=== PATIENT | male | born 1945 | race Caucasian/White ===

== ENCOUNTER → 2019-02-21 08:26 | Outpatient (BNVA) | payer OTHER, MEDICARE, SELFPAY | PROVIDERS: Family Provider Registered Nurse; PCP Registered Nurse; Visit Provider Orthopaedic Surgery | DX: M19.011 Primary osteoarthritis, right shoulder (principal) | CPT/HCPCS: 73030 ==

== ENCOUNTER → 2019-07-15 11:31 | Outpatient (BNVA) | payer OTHER, MEDICARE, SELFPAY | PROVIDERS: Family Provider Registered Nurse; PCP Registered Nurse; Visit Provider Registered Nurse | DX: R30.0 Dysuria (principal); R73.9 Hyperglycemia, unspecified; I10 Essential (primary) hypertension; E78.5 Hyperlipidemia, unspecified; R53.83 Other fatigue | CPT/HCPCS: 80053; 80061; 81000; 83036; 85025 ==

== ENCOUNTER → 2019-08-19 08:39 | Outpatient (BNVA) | payer MEDICARE, OTHER, SELFPAY | PROVIDERS: Family Provider Registered Nurse; PCP Registered Nurse; Visit Provider Registered Nurse | DX: D72.9 Disorder of white blood cells, unspecified (principal); R94.5 Abnormal results of liver function studies; Z01.89 Encounter for other specified special examinations; R89.9 Unspecified abnormal finding in specimens from other organs, systems and tissues | CPT/HCPCS: 80053; 85025 ==

== ENCOUNTER 2019-12-15 10:12 | Outpatient (CLI) | payer OTHER, MEDICARE, SELFPAY ==
--- NOTE | 2019-12-15 10:22 | USCV_ITS ---
Markos Najera Age: 74 Gender: M : 1945 Exam Date: 12/15/2019 10:22 Ordering Phys: Marbella Diallo MD ([email or web address]) Technologist: Amalia Philip Exam Location: [facility] Indication: BP: 130 / 70 HR: 60 Rhythm: Sinus Technical Quality: Adequate MEASUREMENTS (Male / Female) Normal Values 2D ECHO LV Diastolic Diameter PLAX 3.9 cm 4.2 - 5.9 / 3.9 - 5.3 cm LV Systolic Diameter PLAX 2.5 cm LV Chamber Size 3.6 cm IVS Diastolic Thickness 1.6 cm 0.6 - 1.0 / 0.6 - 0.9 cm IVS Systolic Thickness 1.9 cm LVPW Diastolic Thickness 1.6 cm 0.6 - 1.0 / 0.6 - 0.9 cm LVPW Systolic Thickness 1.8 cm RV Chamber Size 2.8 cm LVOT Diameter 2.0 cm LV Ejection Fraction 2D Teich 66.9 % LV Ejection Fraction MOD 2C 72.9 % LV Ejection Fraction 2C AL 77.4 % LA Diameter 2.6 cm LA Width 2.5 cm LA Height 3.3 cm RA Width 3.0 cm RA Height 4.5 cm Aorta at Sinotubular Diameter 3.4 cm M-MODE LV Diastolic Diameter MM 5.7 cm 4.2 - 5.9 / 3.9 - 5.3 cm LV Systolic Diameter MM 3.5 cm LV Ejection Fraction MM Teich 68.4 % IVS Diastolic Thickness MM 0.9 cm 0.6 - 1.0 / 0.6 - 0.9 cm IVS Systolic Thickness MM 1.5 cm LVPW Diastolic Thickness MM 1.1 cm 0.6 - 1.0 / 0.6 - 0.9 cm LVPW Systolic Thickness MM 1.5 cm RV Diastolic Diameter MM 1.0 cm Aortic Annulus Diameter 3.0 cm LA Ao Ratio MM 1.2 MV E Point Septal Separation 0.6 cm DOPPLER AV Peak Velocity 351.0 cm/s LVOT Peak Velocity 113.0 cm/s AV Area Cont Eq vti 1.0 cm squared AV Area Cont Eq pk 1.1 cm squared MV Area PHT 4.2 cm squared Mitral E to A Ratio 0.9 MV E' Velocity 46.5 cm/s Mitral E to MV E' Ratio 16.0 Mitral E to LV E' Lateral Ratio 16.9 Mitral E to LV E' Septal Ratio 15.1 TR Peak Velocity 142.9 cm/s TR Peak Gradient 8.2 mmHg TR Mean Velocity 100.6 cm/s TR Mean Gradient 4.7 mmHg TR Velocity Time Integral 40.5 cm TV Peak E Velocity 43.0 cm/s Right Atrial Pressure 3.0 mmHg Pulmonary Artery Systolic Pressu 11.2 mmHg PV Peak Velocity 89.0 cm/s RV Acceleration Time 0.1 s RV Ejection Time 0.4 s RV AcT/ET 0.3 FINDINGS Left Ventricle Normal left ventricular cavity size. Normal left ventricular systolic function. No regional wall motion abnormalities. Left ventricular ejection fraction is estimated at 68 %. Grade I/IV diastolic dysfunction (abnormal relaxation filling pattern), normal to mildly elevated filling pressures. Right Ventricle The right ventricle is normal in size and function. Right Atrium The right atrium is normal in size. Left Atrium The left atrium is normal in size. Mitral Valve Structurally normal mitral valve without significant stenosis or prolapse. There is no mitral regurgitation. Aortic Valve Severe aortic valve calcification. Moderate to severe aortic valve stenosis, mean gradient 24.4 mmHg, ELAN 1 cm squared. Mild-to- moderate aortic valve regurgitation. Velocity across the aortic valve is 3.5 m/s Tricuspid Valve Structurally normal tricuspid valve without significant stenosis or regurgitation. Pulmonary artery systolic pressure is normal. Pulmonic Valve Structurally normal pulmonic valve without significant stenosis. There is no pulmonic regurgitation. Pericardium Normal pericardium without effusion. Aorta Normal ascending aorta dimension. CONCLUSIONS 1-Normal left ventricular cavity size. Normal left ventricular systolic function. No regional wall motion abnormalities. Left ventricular ejection fraction is estimated at 68 %. Grade I/IV diastolic dysfunction (abnormal relaxation filling pattern), normal to mildly elevated filling pressures. 2-Severe aortic valve calcification. Moderate to severe aortic valve stenosis, mean gradient 24.4 mmHg, ELAN 1 cm squared. Mild-to- moderate aortic valve regurgitation. Velocity across the aortic valve is 3.5 m/s. 3-There is no pericardial effusion. 4-Right atrial pressure is around 5 mm of mercury. 5-When compared to the prior echocardiogram dated 14 December 2018 there is worsening of aortic stenosis from moderate stenosis with ELAN of 1.5cm2 to moderate to severely stenotic with aortic valve area of 1.0 cm squarednow . Marbella Diallo MD (Electronically Signed) Final Date: 18 December 2019 18:01 S
== END 2019-12-15 10:13 | disposition home or self-care (01) ==
LOC: RAD 10:15
PROVIDERS: PCP Registered Nurse; Visit Provider Internal Medicine Cardiovascular Disease
DX: R06.02 Shortness of breath (principal); I35.0 Nonrheumatic aortic (valve) stenosis
CPT/HCPCS: 93306

== ENCOUNTER 2020-02-04 15:46 | Outpatient (CLI) | payer OTHER, MEDICARE, SELFPAY ==
--- NOTE | 2020-02-04 16:25 | XRR_ITS ---
PROCEDURE INFORMATION: Exam: XR Right Shoulder Exam date and time: 02/04/2020 4:25 PM Age: 75 years old Clinical indication: Condition or disease; Osteoarthritis; Primary; Shoulder; Right; Additional info: M19.011 - primary osteoarthritis, right shoulder TECHNIQUE: Imaging protocol: XR Right shoulder. Views: 2 or more views. COMPARISON: CR XR shoulder RT min 2V* [id number] 02/21/2019 8:31 AM FINDINGS: Bones/joints: Degenerative changes of thoracic spine. Moderate degenerative arthritis of the right shoulder with hypertrophic formation of the proximal humerus. Mild degenerative change at the acromioclavicular joint. Small calcification within tendon near the greater tuberosity of the humerus. Greater tuberosity irregularity and sclerosis Soft tissues: Normal. XR/XR shoulder RT min 2V* [id number] IMPRESSION: Moderately advanced degenerative arthritis right shoulder similar to previous. .
--- NOTE | 2020-02-04 16:25 | XRR_ITS ---
PROCEDURE INFORMATION: Exam: XR Right Hip with Pelvis when Performed Exam date and time: 02/04/2020 4:25 PM Age: 75 years old Clinical indication: Condition or disease; Other: Arthritis; Additional info: M16.11 - unilateral primary osteoarthritis, right hip TECHNIQUE: Imaging protocol: XR Right hip with pelvis when performed. Views: 1 view. COMPARISON: No relevant prior studies available. FINDINGS: Bones/joints: Degenerative arthritis of right hip. Right pelvic vascular calcification. No acute fracture. Most likely degenerative cortical irregularity at the margin of lateral greater trochanter. Soft tissues: Unremarkable. Vasculature: Right pelvic phleboliths. XR/XR hip RT 2-3V wo/w pel* [id number] IMPRESSION: Mild degenerative arthritis right hip.
== END 2020-02-04 15:47 | disposition home or self-care (01) ==
PROVIDERS: PCP Registered Nurse; Visit Provider Registered Nurse
DX: M19.011 Primary osteoarthritis, right shoulder (principal); M16.11 Unilateral primary osteoarthritis, right hip
CPT/HCPCS: 73030; 73502

== ENCOUNTER 2020-03-08 12:13 | Outpatient (CLI) | payer OTHER, MEDICARE, SELFPAY ==
--- NOTE | 2020-03-08 12:26 | XR_ITS ---
WS: [id number] Exam: XR lumbar spine 2-3V* [id number] Date/Time of Exam: 03/08/2020 12:28 PM Reason For Exam: M54.5 - Low back pain No fracture or dislocation noted. Facet DJD at all levels. Mild levoscoliosis. DJD of the SI joints. There may be mild aneurysmal dilatation of the infrarenal abdominal aorta. XR/XR lumbar spine 2-3V* [id number] IMPRESSION: 1. Mild degenerative change. No fracture or malalignment. 2. There may be mild aneurysmal dilatation of the infrarenal abdominal aorta. F urther workup with ultrasound might be considered if felt to be clinically román anted.
== END 2020-03-08 12:14 | disposition home or self-care (01) ==
LOC: RAD 12:25
PROVIDERS: PCP Registered Nurse; Visit Provider Registered Nurse
DX: M54.5 Low back pain (principal)
CPT/HCPCS: 72100

== ENCOUNTER 2020-03-12 21:20 | Emergency (ER) | payer OTHER, MEDICARE, SELFPAY ==
[2020-03-12 21:25] VITALS: BP 141/53; PULSE 75; RESP 17; TEMP 36.5; O2SAT 95; BMI 30.5
[2020-03-12 21:31] VITALS: BP 143/89; PULSE 75; RESP 17; O2SAT 96
--- NOTE | 2020-03-12 21:31 | XRR_ITS ---
PROCEDURE INFORMATION: Exam: XR Chest, 1 View Exam date and time: 03/12/2020 9:37 PM Age: 75 years old Clinical indication: Chest pain; Additional info: Cp TECHNIQUE: Imaging protocol: XR of the chest Views: 1 view. COMPARISON: CR Chest 1 [place] [id number] 12/15/2017 6:16 PM FINDINGS: Lungs: Small dense nodule in the right lung base, consistent with a granuloma. The left lung is clear. Pulmonary vasculature within normal limits. Pleural space: No visible pneumothorax or pleural effusion. Heart/Mediastinum: Cardiomediastinal silhouette contour within normal limits. Bones/joints: No emergent findings identified. XR/XR chest 1V portable [id number] IMPRESSION: 1. No radiographic findings of acute cardiopulmonary disease.
--- NOTE | 2020-03-12 21:32 | ECG_ITS ---
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 Measurements Intervals [place] Rate: 61 P: 57 SC: 240 QRS: -66 QRSD: 137 T: 69 QT: 429 QTc: 434 Interpretive Statements SINUS RHYTHM WITH FIRST DEGREE AV BLOCK RIGHT BUNDLE BRANCH BLOCK [120+ ms QRS DURATION, UPRIGHT V1, 40+ ms S IN I/aVL/V4/V5/V6] LEFT ANTERIOR FASCICULAR BLOCK [QRS AXIS <= -45, QR IN I, RS IN II] Compared to ECG 12/16/2017 01:35:42 No significant changes Electronically Signed On 03-13-2020 15:29:26 CORRECTION WORKER by Geremias Castelan M.D. [id number]
--- NOTE | 2020-03-12 21:46 | W.ED.CHESTPA ---
HPI - Chest Pain General: Chief Complaint: Chest Pain Stated Complaint: CHEST PAINS Time Seen by Provider: 03/12/20 21:31 Source: patient Mode of arrival: ambulatory Limitations: no limitations History of Present Illness: HPI narrative: Patient comes in today with chest discomfort that has resolved since arriving to the ER. Patient had been eating a hamburger and started having centralized chest pain that radiated to the right and then back up into his chest. Patient does have a history of aortic stenosis, hyperlipidemia, hypertension, and osteoarthritis of the right shoulder. Patient appears well. Patient appears in mild to no pain. MD complaint: chest pain Associated symptoms: Reports abdominal pain Review of Systems General: Reports: 10 or more systems reviewed and unremarkable except in HPI and below GI: Reports: abdominal pain PFSH ED PFSH: Medical History Aortic stenosis, moderate Hyperlipidemia Hypertension Osteoarthritis of right glenohumeral joint Family History Denies family history of Diabetes CAD (coronary artery disease) Clotting disorder Dementia Hyperlipidemia Psychiatric illness Chronic kidney disease (CKD) Suicide Anesthesia complication Bleeding disorder Family history of premature coronary artery disease Lung disease Cancer Hypertension Stroke Social History Smoking and tobacco status: former smoker Alcohol intake: former Physical Exam Const: COMMON NORMALS: no acute distress and patient oriented x3 GENERAL APPEARANCE: cooperative HENMT: COMMON NORMALS: normocephalic and Normal external nose present HEAD & SCALP: normal to inspection and normocephalic NOSE: Normal external nose present MOUTH: Normal oral and palatal mucosa present Eye: GENERAL EYE: appearance normal, both eyes and all related structures Neck/C-Spine: COMMON NORMALS: full ROM Chest: COMMONS NORMALS: normal inspection of the chest Resp: COMMON NORMALS: normal respiratory effort EFFORT & INSPECTION: Yes able to speak in complete sentences Cardio: COMMON NORMALS: regular rate and regular rhythm RATE: regular rate RHYTHM: regular rhythm HEART SOUNDS: Murmur heart sound present continuous GI: COMMON NORMALS: non-tender : COMMON NORMALS: Yes no CVA tenderness BLADDER/KIDNEY EXAM: Yes no CVA tenderness Back/Pelvis: COMMON NORMALS: no CVA tenderness and thoracic and lumbar spine normal to inspection Extremity: COMMON NORMALS: normal to inspection Neuro: COMMON NORMALS: patient oriented x3 and moves all extremities Psych: COMMON NORMALS: mental status grossly normal and cooperative Skin: COMMON NORMALS: no rashes or lesions noted GENERAL SKIN EXAM: no rashes or lesions noted Course ED course: 1035, patient had episode of emesis with recurrent chest discomfort. First troponin was negative. D-dimer was negative. Concern for abdominal bruit and pulsation for dissection of aorta. We will go ahead with CTA of the chest and abdomen. Vital Signs: Vital signs: Vital Signs Temperature 97.7 F 03/12/20 21:25 Pulse Rate 66 03/12/20 23:43 Respiratory Rate 18 03/12/20 23:43 Blood Pressure 128/69 03/12/20 23:43 Pulse Oximetry 95 03/12/20 23:43 MDM - Chest Pain MDM Narrative: Medical decision making narrative: Patient comes in today for concerns of abdominal/chest pain. On exam patient has no tenderness of the abdomen. Lungs are clear to auscultation. Skin is warm and dry. Patient has a very mild pansystolic murmur throughout diastole and systole. Palpation of abdomen note a pulsation. Bruit is also auscultated in the abdomen. Differential diagnosis includes ACS, dissection of aorta, gastritis. Laboratory values were unremarkable. No change in troponin over [address] scan of the chest and abdomen noted a 3 cm abdomen aortic aneurysm. There was no sign of significant illness or injury. Reviewed exam with patient with recommendations for follow-up with Dr. Sanz. Offered to admit patient observation for chest discomfort but he wished to go home. Discussed the importance of follow-up with Dr. Sanz for further evaluation and treatment. Lab Data: Labs: Lab Results 03/12/20 03/12/20 03/12/20 Range/Units 21:41 21:41 21:41 WBC 7.1 (4.0-10.0) 10^3/ uL RBC 5.20 (4.1-5.3) 10^6/u L Hgb 14.8 (11.7-16.6) g/dL Hct 46.3 (42.0-52.0) % MCV 89.0 (80-94) fL MCH 28.5 (28.0-34.0) pg MCHC 32.0 (30.0-36.0) g/dL RDW 12.7 (12.1-15.1) % Plt Count 197 (130-400) 10^3/c mm MPV 10.9 H (7.4-10.4) fL Neut % (Auto) 53.6 % Lymph % (Auto) 32.9 % [place] % (Auto) 9.0 % Eos % (Auto) 3.8 % Baso % (Auto) 0.6 % Neut # (Auto) 3.83 (1.8-7.7) 10^3/u L Lymph # (Auto) 2.4 (0.8-4.8) 10^3/u L [place] # (Auto) 0.6 (0.2-0.9) 10^3/u L Eos # (Auto) 0.3 (0.0-0.8) 10^3/u L Baso # (Auto) 0.0 (0.0-0.1) 10^3/u L Nucleated RBC % (a uto) 0 % Nucleated RBCs # 0.0 /100WBC D-Dimer 0.35 (0-0.59) ug/mIFE U Sodium 140 (136-145) mmol/L Potassium 4.0 (3.5-5.1) mmol/L Chloride 102 (98-107) mmol/L Carbon Dioxide 28 (22-29) mmol/L Anion Gap 14.0 (5-19) BUN 20 (8-23) mg/dL Creatinine 0.9 (0.7-1.2) mg/dL GFR Calculation Not Reportable Glucose 102 (65-115) mg/dL Calculated Osmolal ity 293 (285-295) mOsm/k g Calcium 9.2 (8.5-10.5) mg/dL Total Bilirubin 0.2 (0.15-1.2) mg/dL AST 20 (0-40) U/L ALT 16 (0-41) U/L Alkaline Phosphata se 73 (40-130) IU/L Troponin T Baselin e (0-15) ng/L Troponin T 120 Min cocopah (0-15) ng/L Delta Troponin T (0-10) ABS# NT-Pro-B Natriuret Pep 31 (0-450) pg/mL Total Protein 6.8 (6.6-8.7) g/dL Albumin 4.1 (3.5-5.2) g/dL Globulin 2.7 (1.3-4.6) g/dL Urine Color (Yellow) Urine Appearance (CLEAR) Urine pH (5-7) Ur Specific Gravit y (1.005-1.030) Urine Protein (Negative) Urine Glucose (UA) (Normal) Urine Ketones (Negative) Urine Blood (Negative) Urine Nitrate (Negative) Urine Bilirubin (Negative) Urine Urobilinogen (Negative) mg/dL Ur Leukocyte Isaura ase (Negative) 03/12/20 03/12/20 03/12/20 Range/Units 21:41 23:25 23:52 WBC (4.0-10.0) 10^3/ uL RBC (4.1-5.3) 10^6/u L Hgb (11.7-16.6) g/dL Hct (42.0-52.0) % MCV (80-94) fL MCH (28.0-34.0) pg MCHC (30.0-36.0) g/dL RDW (12.1-15.1) % Plt Count (130-400) 10^3/c mm MPV (7.4-10.4) fL Neut % (Auto) % Lymph % (Auto) % [place] % (Auto) % Eos % (Auto) % Baso % (Auto) % Neut # (Auto) (1.8-7.7) 10^3/u L Lymph # (Auto) (0.8-4.8) 10^3/u L [place] # (Auto) (0.2-0.9) 10^3/u L Eos # (Auto) (0.0-0.8) 10^3/u L Baso # (Auto) (0.0-0.1) 10^3/u L Nucleated RBC % (a uto) % Nucleated RBCs # /100WBC D-Dimer (0-0.59) ug/mIFE U Sodium (136-145) mmol/L Potassium (3.5-5.1) mmol/L Chloride (98-107) mmol/L Carbon Dioxide (22-29) mmol/L Anion Gap (5-19) BUN (8-23) mg/dL Creatinine (0.7-1.2) mg/dL GFR Calculation Glucose (65-115) mg/dL Calculated Osmolal ity (285-295) mOsm/k g Calcium (8.5-10.5) mg/dL Total Bilirubin (0.15-1.2) mg/dL AST (0-40) U/L ALT (0-41) U/L Alkaline Phosphata se (40-130) IU/L Troponin T Baselin e 16 H (0-15) ng/L Troponin T 120 Min [place] 16.30 H (0-15) ng/L Delta Troponin T 0.30 (0-10) ABS# NT-Pro-B Natriuret Pep (0-450) pg/mL Total Protein (6.6-8.7) g/dL Albumin (3.5-5.2) g/dL Globulin (1.3-4.6) g/dL Urine Color Yellow (Yellow) Urine Appearance Clear (CLEAR) Urine pH 6.5 (5-7) Ur Specific Gravit y 1.010 (1.005-1.030) Urine Protein Neg (Negative) Urine Glucose (UA) Norm (Normal) Urine Ketones Negative (Negative) Urine Blood Neg (Negative) Urine Nitrate Negative (Negative) Urine Bilirubin Neg (Negative) Urine Urobilinogen Norm (Negative) mg/dL Ur Leukocyte Isaura ase Negative (Negative) Discharge Plan Discharge Patient Disposition: Home Clinical Impression: Atypical chest pain Condition: Stable Prescriptions: No Action aspirin 81 mg tablet,delayed release (DR/EC) 81 mg PO ONCE RF: 0 celecoxib [Celebrex] 100 mg capsule 100 mg PO DAILY 30 Days Qty: 60 RF: 0 glucosamine-chondroitin 900 mg tablet PO RF: 0 elderberry fruit 200 mg capsule PO RF: 0 ascorbic acid (vitamin C) 1,000 mg tablet 1 gm PO DAILY RF: 0 sildenafil [Viagra] 100 mg tablet 100 mg PO DAILY PRN (Reason: sexual activity) Qty: 90 RF: 1 simvastatin 20 mg tablet See Rx Instructions .ROUTE .COMPLEX 90 Days Qty: 90 RF: 0 amlodipine 10 mg tablet See Rx Instructions .ROUTE .COMPLEX Qty: 60 RF: 0 clopidogrel 75 mg tablet 75 mg PO DAILY 90 Days Qty: 90 RF: 0 Discharge Orders: Discharge ED (Routine); Ordered 03/13/20 Ordered By: Cachorro Sherwood Referrals: Micah Beaulieu FNP [Primary Care Provider] - Discharge Diet: Usual diet Discharge Activity: Increase activity as tolerated Activity Restrictions/Additional Instructions: Follow-up with Dr. Sanz on Sunday. Continue routine care. Return to the emergency department for worsening pain or new concerns. Coding Level of Care Code ED Bolt Sawyer for Jose David Fwsharee Exam Comprehensive
[2020-03-12 21:47] LABS: Basophils % 0.6 %; Eosinophils # 0.3 10^3/uL (0.0-0.8); Eosinophils % 3.8 %; Hematocrit 46.3 % (42.0-52.0); Hemoglobin 14.8 g/dL (11.7-16.6); Lymphocytes # 2.4 10^3/uL (0.8-4.8); Lymphocytes % 32.9 %; Mean Corpuscular Hemoglobin 28.5 pg (28.0-34.0); Mean Platelet Volume 10.9 fL (7.4-10.4); Monocytes # 0.6 10^3/uL (0.2-0.9); Neutrophils # 3.83 10^3/uL (1.8-7.7); Neutrophils % 53.6 %; Nucleated Red Blood Cells % 0 %; Platelet Count 197 10^3/cmm (130-400); Red Cell Distribution Width 12.7 % (12.1-15.1); White Blood Count 7.1 10^3/uL (4.0-10.0)
[2020-03-12 22:02] LABS: D Dimer 0.35 ug/mIFEU (0-0.59)
[2020-03-12 22:06] LABS: Troponin(5th) Baseline 16 ng/L (0-15)
[2020-03-12 22:14] LABS: Alanine Aminotransferase 16 U/L (0-41); Albumin Level 4.1 g/dL (3.5-5.2); Alkaline Phosphatase 73 IU/L (40-130); Aspartate Amino Transferase 20 U/L (0-40); Blood Urea Nitrogen 20 mg/dL (8-23); Calcium 9.2 mg/dL (8.5-10.5); Carbon Dioxide 28 mmol/L (22-29); Chloride 102 mmol/L (98-107); Globulin 2.7 g/dL (1.3-4.6); Glucose 102 mg/dL (65-115); NT Pro B Type Natriuretic Pept 31 pg/mL (0-450); Osmolality Calculated 293 mOsm/kg (285-295); Sodium 140 mmol/L (136-145); Total Bilirubin 0.2 mg/dL (0.15-1.2); Total Protein 6.8 g/dL (6.6-8.7)
[2020-03-12 22:19] VITALS: BP 127/63; PULSE 74; RESP 14; O2SAT 93
[2020-03-12] MEDS: aspirin 81 mg Chew Tablet 324 MG PO (22:21)
--- NOTE | 2020-03-12 22:35 | CTR_ITS ---
PROCEDURE INFORMATION: Exam: CT Angiography Chest With Contrast Exam date and time: 03/12/2020 10:40 PM Age: 75 years old Clinical indication: Other: Abnormal pulsation; Patient HX: C/O chest pain. Abnormal abdominal pulsation on auscultation. History of aortic stenosis; Additional info: Chest pain, aortic stenosis TECHNIQUE: Imaging protocol: Computed tomographic angiography of the chest with contrast. 3D rendering (Not supervised by radiologist): MIP and/or 3D reconstructed images were created by the technologist. Radiation optimization: All CT scans at this facility use at least one of these dose optimization techniques: automated exposure control; mA and/or kV adjustment per patient size (includes targeted exams where dose is matched to clinical indication); or iterative reconstruction. Contrast material: OMNI 350; Contrast volume: 95 ml; Contrast route: INTRAVENOUS (IV); COMPARISON: CTA Chest-Pulmonary Emb [id number] 12/15/2017 8:55 PM RADIATION DOSE METRICS: Total DLP (mGy-cm): 2855.52 FINDINGS: Pulmonary arteries: No pulmonary emboli identified. Aorta: Mild atherosclerotic calcification of the thoracic aorta. No thoracic aortic aneurysm identified. Lungs: Mild patchy atelectasis at the periphery of both lungs. Pleural spaces: No pneumothorax or pleural effusion. Heart: Heart size within normal limits. Lymph nodes: Calcified right tracheobronchial lymph nodes, consistent with old granulomatous disease. Bones/joints: Moderate degenerative changes of the right glenohumeral joint. Flowing ossification anterior to the thoracic spine, consistent with diffuse idiopathic skeletal hyperostosis. Soft tissues: Unremarkable. IMPRESSION: 1. No thoracic aortic aneurysm identified. PROCEDURE INFORMATION: Exam: CT Angiography Abdomen and Pelvis With Contrast Exam date and time: 03/12/2020 10:40 PM Age: 75 years old Clinical indication: Other: Abnormal pulsation; Patient HX: C/O chest pain. Abnormal abdominal pulsation on auscultation. History of aortic stenosis; Additional info: Chest pain, aortic stenosis TECHNIQUE: Imaging protocol: Computed tomographic angiography of the abdomen and pelvis with contrast material. 3D rendering (Not supervised by radiologist): MIP and/or 3D reconstructed images were created by the technologist. Radiation optimization: All CT scans at this facility use at least one of these dose optimization techniques: automated exposure control; mA and/or kV adjustment per patient size (includes targeted exams where dose is matched to clinical indication); or iterative reconstruction. Contrast material: OMNI 350; Contrast volume: 95 ml; Contrast route: INTRAVENOUS (IV); COMPARISON: CTA Chest-Pulmonary Emb [id number] 12/15/2017 8:55 PM RADIATION DOSE METRICS: Total DLP (mGy-cm): 2855.52 FINDINGS: Aorta: Fusiform aneurysm of the infrarenal abdominal aorta measuring 3.2 cm x 3.2 cm on series 5, image 157. No abdominal aortic dissection. Celiac trunk and mesenteric arteries: No occlusion or significant stenosis. Renal arteries: No occlusion or significant stenosis. Right iliac arteries: No occlusion or significant stenosis. Left iliac arteries: No occlusion or significant stenosis. Liver: No mass. Gallbladder and bile ducts: Small amount of mildly hyperdense material in the gallbladder, consistent with sludge. Pancreas: Unremarkable. No mass. No ductal dilation. Spleen: Unremarkable. No splenomegaly. Adrenal glands: Unremarkable. No mass. Kidneys and ureters: There is a 1.1 cm mass in the right kidney lower pole on series 5, image 162. Density is 37 Hounsfield units. Etiology is indeterminate. Consider renal mass protocol CT for further evaluation on a nonemergent basis. There are a few tiny stones scattered in the left kidney. Tiny hypodensity in the left kidney lower pole, statistically likely to represent a cyst (no follow-up imaging suggested). No hydronephrosis. Stomach and bowel: No bowel obstruction. Colonic diverticulosis without evidence of diverticulitis. Appendix: The appendix is not identified as a separate structure. No findings to suggest appendicitis. Intraperitoneal space: Unremarkable. No free air. No significant fluid collection. Lymph nodes: Unremarkable. No enlarged lymph nodes. Urinary bladder: Unremarkable. No mass. Reproductive: Unremarkable as visualized. Bones/joints: Mild degenerative changes of the lumbar spine. Soft tissues: Unremarkable. CT/CT angio chest abdomen pelvis IMPRESSION: 1. Fusiform aneurysm of the infrarenal abdominal aorta measuring 3.2 cm x 3.2 cm. Radiation Dose CTDIVOL = (mGy): DLP = 2855.52~2855.52 (mGy-cm)
[2020-03-12] MEDS: iohexol 350 mg/mL 100 mL Btl IV (22:51)
--- NOTE | 2020-03-12 23:32 | ECG_ITS ---
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 Measurements Intervals [place] Rate: 74 P: 28 IL: 204 QRS: -72 QRSD: 133 T: 75 QT: 388 QTc: 432 Interpretive Statements SINUS RHYTHM RIGHT BUNDLE BRANCH BLOCK [120+ ms QRS DURATION, UPRIGHT V1, 40+ ms S IN I/aVL/V4/V5/V6] LEFT ANTERIOR FASCICULAR BLOCK [QRS AXIS <= -45, QR IN I, RS IN II] Compared to ECG 12/16/2017 01:35:42 First degree AV block no longer present Electronically Signed On 03-13-2020 15:33:27 INSURANCE REPRESENTATIVE by Geremias Castelan M.D. [id number]
[2020-03-12 23:43] VITALS: BP 128/69; PULSE 66; RESP 18; O2SAT 95
[2020-03-13 00:01] LABS: Add Urine Microscopic? NO
[2020-03-13 00:13] LABS: Bilirubin Urine Neg (Negative); Blood Urine Neg (Negative); Glucose Urine UA Norm (Normal); Ketones Urine Negative (Negative); Leukocyte Esterase Urine Negative (Negative); Nitrate Urine Negative (Negative); Protein Urine Neg (Negative); Urine Appearance Clear (CLEAR); Urine Color Yellow (Yellow); Urobilinogen Urine Norm (Negative); pH Urine 6.5 (5-7)
[2020-03-13 01:00] VITALS: BP 124/63; PULSE 74; RESP 18; O2SAT 96
[2020-03-13 02:04] VITALS: BP 124/63; PULSE 84; RESP 18; O2SAT 96
--- NOTE | 2020-03-15 14:14 | DCPLANNER ---
health program manager had message to schedule a follow up appointment for patient with heart care. health program manager called the heart care clinic, spoke with Rebekah. Patient has a follow up appointment scheduled for Sunday, March 15, 2020 at 3:30. Patient is aware of appointment.
--- NOTE | 2020-03-16 07:37 | DCPLANNER ---
Patient had a follow up appointment scheduled for 03.15.20 with [facility] - patient did attend appointment.
== END 2020-03-13 01:10 | disposition home or self-care (01) ==
PROVIDERS: Family Medicine; Emergency Provider Nurse Practitioner Family; PCP Registered Nurse
DX: E78.5 Hyperlipidemia, unspecified (principal); I10 Essential (primary) hypertension; Z87.891 Personal history of nicotine dependence
CPT/HCPCS: 12345; 36415; 71045; 71275; 74174; 80053; 81003; 83880; 84484; 85025; 85378; 93005; 99282; 99284; Q9967

== ENCOUNTER 2020-04-21 14:41 | Outpatient (CLI) | payer OTHER, MEDICARE, SELFPAY ==
[2020-04-21 15:00] LABS: Basophils % 0.4 %; Eosinophils % 0.2 %; Hematocrit 44.7 % (42.0-52.0); Hemoglobin 14.3 g/dL (11.7-16.6); Lymphocytes % 18.5 %; Mean Corpuscular Hemoglobin 28.7 pg (28.0-34.0); Mean Corpuscular Volume 89.8 fL (80-94); Mean Platelet Volume 11.9 fL (7.4-10.4); Monocytes # 0.4 10^3/uL (0.2-0.9); Monocytes % 7.6 %; Neutrophils # 3.82 10^3/uL (1.8-7.7); Neutrophils % 72.9 %; Nucleated Red Blood Cells % 0 %; Platelet Count 150 10^3/cmm (130-400); Red Blood Count 4.98 10^6/uL (4.1-5.3); Red Cell Distribution Width 12.8 % (12.1-15.1); White Blood Count 5.2 10^3/uL (4.0-10.0)
[2020-04-21 15:16] LABS: Blood Urea Nitrogen 17 mg/dL (8-23); Calcium 8.6 mg/dL (8.5-10.5); Carbon Dioxide 28 mmol/L (22-29); Chloride 99 mmol/L (98-107); Glucose 87 mg/dL (65-115); Osmolality Calculated 285 mOsm/kg (285-295); Sodium 137 mmol/L (136-145)
[2020-04-21 15:58] LABS: Anion Gap 14.1 (5-19); Potassium 4.1 mmol/L (3.5-5.1)
== END 2020-04-21 14:42 | disposition home or self-care (01) ==
PROVIDERS: PCP Registered Nurse; Visit Provider Internal Medicine Cardiovascular Disease
DX: R07.89 Other chest pain (principal); I35.0 Nonrheumatic aortic (valve) stenosis; R06.02 Shortness of breath
CPT/HCPCS: 36415; 80048; 85025; 87635

== ENCOUNTER 2020-04-27 05:41 | Day surgery (SDC) | payer OTHER, MEDICARE, SELFPAY ==
[2020-04-27] VITALS (47 sets, daily range): BP systolic 113–164; BP diastolic 55–79; PULSE 54–80; RESP 0–38; TEMP 36.5–36.7; O2SAT 94–97; BMI 30.8
[2020-04-27] MEDS: diphenhydrAMINE 50 mg Capsule PO (06:36)
--- NOTE | 2020-04-27 07:00 | XACV_ITS ---
Ht: 170 cm Wt: 89 kg BSA: 2.08 m2 Gender: Male : 1945 Any Known Allergies: No known allergies Exam Priority: Routine Procedure(s): Procedure Description: Diagnostic procedure Procedure Description: PCI procedure Procedure Description: Right Heart Catheterization Procedure Description: O2 saturation Procedure Description: Drug Eluting Coronary Stent Procedure Description: PTCA Procedure Description: Miscellaneous Procedure Description: ACT Procedure Description: Coronary Angiography Diagnostic Cath Status: Elective Diagnostic Findings * LM has 0% stenosis. * LAD has 0% stenosis. * pCIRC: Mild 40% stenosis, VU: 3 flow. * Mid Right Coronary Artery: Severe 90% stenosis, VU: 3 flow. * Mid Right Coronary Artery: Severe 90% stenosis, VU: 3 flow. * Distal Right Coronary Artery: Severe 90% stenosis, VU: 3 flow. * Coronary angiography shows co-dominance. Interventional Findings * Mid Right Coronary Artery: 90% stenosis treated with AB TREK 2.50X12 RX BALLOON and MANDI Sahu JARAD 3.0X12 CALLI. 0% residual stenosis, VU: 3 flow. * Mid Right Coronary Artery: 90% stenosis treated with MDT R JARAD 3.0X12 CALLI. 0% residual stenosis, VU: 3 flow. * Distal Right Coronary Artery: 90% stenosis treated with AB TREK 2.50X12 RX BALLOON and MDT R JARAD 3.0X18 CALLI. 0% residual stenosis, VU: 3 flow. * Please note that intervention was performed in mid and distal RCA with one drug-eluting stent in the distal lesion, while 2 overlapping drug-eluting stent in the mid segment of the RCA as during deployment of the mid RCA stent patient became uncooperative and started moving leading to geographical miss to cover that part of the lesion distal to the stent we have to place another overlapping stent, which then was postdilated. Excellent angiographic result with VU-3 flow was achieved in the RCA. Conclusions 1. There is severe coronary artery disease with two vessel disease. 2. Mid Right Coronary Artery was treated with Balloon and Drug Eluting Stent. 3. Mid Right Coronary Artery was treated with Drug Eluting Stent. 4. Distal Right Coronary Artery was treated with Balloon and Drug Eluting Stent. 5. Indication for left heart cath: Pre operative valvular study, typical angina with worsening of shortness of breath, severe aortic stenosis, pre-TAVR study. Recommendations * 1-Return to inpatient for close monitoring and routine cath care 2-Risk factor modification for secondary prevention 3-Statin and aspirin 81 mg life--long, if tolerated 4-Patient was pre-loaded with 300 mg of Plavix, continue Plavix 75mg p.o. daily for at least one year. We will assess at the end of one year again to continue if further or not 5-Continue optimal medical management, Refer for TAVR. 6-Follow up with Dr. Diallo in four weeks and your primary care in 10 days. Diagnostic RX Recommendation: PCI w/o planned CABG Pressures Phase:Rest AO : 99 / 52 ( 72 ) @ 3:11:00 AM 89 / 47 ( 63 ) @ 3:16:00 AM 114 / 52 ( 75 ) @ 3:48:00 AM 110 / 51 ( 75 ) @ 4:04:00 AM RV : 39 / 3 / @ 4:24:00 AM PA : 32 / 15 ( 21 ) @ 4:23:00 AM RA : a wave = v wave = mean = 7 @ 4:25:00 AM O2 Content Phase:Rest PA : O2 Content O2: 65.4 @ 3:16:00 AM Saturations Phase:Rest AO : 92 @ 3:11:00 AM RA : 72 @ 4:04:00 AM RV : 69 @ 3:48:00 AM PA : 65 @ 3:16:00 AM Cardiac Output Phase:Rest Jed : 4 @ 3:11:00 AM Jed Cardiac Index: 2 @ 3:11:00 AM Clinical Evaluation EBL: 5mL-10mL Procedural Details Pre-Procedure Time Out. Identified patient by full name and date of as verbalized by the patient/guarantor. Does the consent match the physician's order: Yes. Accurate & Complete Informed Consent: Yes. Inpatient/Outpatient History & Physical on Chart: Yes. If H&P is completed, is and addenduem needed: No; If yes, is the addendum complete: N/A. Visualize and Verify Site with Patient/Guarantor: N/A. Relevant Radiology Images available: N/A. Pre-op teaching completed and patient verbalized understanding. The risks, benefits, and alternatives of sedation and/or procedure were discussed by physician. The patient agrees to continue. Procedure started. Physician arrived. [facility] Clinical Fraility Score: 3: Managing Well. Learning Services Coordinator Indications: Valvular Disease. Chest Pain Symptom Assessment: Atypical Angina. Cardiovascular Instability: No. Correct patient, site and procedure confirmed by cath team. PERRLA. Strong, equal hand human resources consultant bilaterally. Lungs clear x 5 lobes. IV Site on Arrival: 18 gauge in the left anticubital. IV Site on Arrival: 22 gauge in the right anticubital. IV Fluids: 0.9% NaCl at KVO. 0 mL infused prior to laborer high density press. Pre Procedural Pulses: bilateral dorsalis pedis was 3+. Pre Procedural Pulses: bilateral posterior tibial was 3+. Pre Procedural Pulses: bilateral radial was 3+. Equipment: 6F - Radial. Cardiac Cath Pack. ACIST Manifold Kit Model BT 2000. Heparinized Saline (2 units/mL), 1000 mL bag. Physician scrubbed in. Immediate Pre-Procedure Time Out. Correct Patient: Yes; Correct Procedure: Yes; Correct Site: Yes; Correct Patient Position: Yes; Correct Supplies: Yes; Dried Flammable Prep: Yes; Blood Products Available: N/A;. Sheath wire inserted through IV catheter in right brachial vein. Lidocaine 1% infiltrated to the right brachial. IV catheter removed over wire. [place]-Nikolai MON catheter inserted. 0.025 [place] wire inserted. Wire out. Hand injection performed. Unable to advance SWAN catheter. [place]-Nikolai out. Lidocaine 1% infiltrated to the right radial. Arterial access obtained. Baseline sample Acquired. HR: 65 BPM. A 5 nepalese TIG catheter in over wire. Multiple views taken of left coronary artery. Catheter redirected to the RCA. Catheter removed over the exchange wire. A 5 nepalese JR4 catheter in over wire. Multiple views taken of right coronary artery. Catheter removed over the exchange wire. A 5 nepalese Angled Pig catheter in over wire. Unable to cross valve. Catheter removed over the exchange wire. Glidewire inserted. A 5 nepalese MPA2 catheter in over wire. Inventory is TR Glidewire Angled Stiff Shaft .035 260cm. Glidewire out. Exchange wire inserted. MPA2 catheter out over exchange wire. A 5 nepalese Angled Pig catheter in over wire. Catheter removed over the exchange wire. Dr Diallo scrubbed out to call Dr Gilmore to discuss this patient plan of care. Dr Diallo scrubbed back in after discussing case with Dr Gilmore. 6 nepalese JR 4 guide catheter was inserted over the wire. [place] guidewire was advanced through the guide catheter to lesion in the distal RCA. Inflation number : 1 A AB TREK 2.50X12 RX BALLOON was prepped and advanced across the Dist RCA , then inflated to 18 ADAM for 0:08 seconds. Inflation number: 1 The AB TREK 2.50X12 RX BALLOON was reinflated across the Mid RCA, to 20 ADAM for 0:09 seconds. Balloon out. Inflation Number : 2 A MDT R JARAD 3.0X18 CALLI -Lot Number# [id number] exp date 09/26/2020 was prepped and advanced across the Dist RCA. The stent was deployed at 16 ADAM for 0:21 seconds. Stent balloon out over wire. Inflation Number : 2 A MDT R JARAD 3.0X12 CALLI -Lot Number# [id number] exp date 12/09/2021 was prepped and advanced across the Mid RCA. The stent was deployed at 18 ADAM for 0:23 seconds. ACT drawn. Results 256 seconds. Therapeutic limits - pre-heparin administration 90-150 seconds and monitoring heparin during a vascular procedure >250 seconds. Stent balloon out over wire. Results checked. Inflation Number : 1 A MANDI Sahu JARAD 3.0X12 CALLI -Lot Number# [id number] exp date 12/30/2021 was prepped and advanced across the Mid RCA1. The stent was deployed at 18 ADAM for 0:22 seconds. Inflation number: 2 The stent balloon was then re-inflated across the Mid RCA1 to 20 ADAM for 0:14 seconds. Stent balloon out over wire. Results checked. Wire out. Guide catheter out. Lidocaine 1% infiltrated to the right groin. Lidocaine 1% infiltrated to the right groin. Venous access obtained with a micropuncture set. [place]-Nikolai MON catheter inserted. 0.025 [place] wire inserted. Wire out. [place]-Nikolai out. Physician scrubbed out. A TR Band was successful obtaining hemostatsis at the Right Radial artery insertion site. A Suture was successful obtaining hemostatsis at the Right Femoral vein insertion site. A Suture was successful obtaining hemostatsis at the Right Brachial Vein insertion site. TR band placed. Hemostasis obtained. Venous Sheath(s) sutured into position with 2-0 silk and sterile 4x4's and Op-site applied over the site. No oozing or signs and symptoms of hematoma noted. Post Procedure: Pulses reassessed and unchanged. PERRLA. Strong, equal hand human resources consultant bilaterally. No VTE prophylaxis required. Medication's Wasted: Lidocaine 1% = 10 mL. Medication's Wasted: Nitro = 49.8 mg. Medication's Wasted: Heparin = 2000 units. Medication's Wasted: Other = fentanyl 75 mcg. Total IV fluids: 126 mL. Contrast type used: Omnipaque 300 mgI/mL, 500 mL bottle. Complications: none. Estimated blood loss: 5mL-10mL. Post-op diagnosis: valvular dz, RCA CAD disease. Procedure completed. Patient transferred by bed to ICU. Vital chart was stopped. Access Site Site: Right Brachial Vein Sheath Size: 6 Fr Hemostasis Method: Suture Hemostasis Success: Successful Site: Right Radial artery Sheath Size: 6 Fr Hemostasis Method: TR Band Hemostasis Success: Successful Site: Right Femoral vein Sheath Size: 6 Fr Hemostasis Method: Suture Hemostasis Success: Successful Procedure Medications Start: 7:48 AM Stop: 7:48 AM Medication: Versed Amount: 1 mg Route: I.V. Start: 7:48 AM Stop: 7:48 AM Medication: Fentanyl Amount: 50 mcg Route: I.V. Start: 7:56 AM Stop: 7:56 AM Medication: Versed Amount: 1 mg Route: I.V. Start: 8:06 AM Stop: 8:06 AM Medication: Fentanyl Amount: 25 mcg Route: I.V. Start: 8:07 AM Stop: 8:07 AM Medication: Versed Amount: 1 mg Route: I.V. Start: 8:07 AM Stop: 8:07 AM Medication: Nitrogylcerin Amount: 200 mcg Route: I.A. Start: 8:13 AM Stop: 8:13 AM Medication: Heparin Amount: 5000 units Route: I.V. Start: 8:28 AM Stop: 8:28 AM Medication: Versed Amount: 1 mg Route: I.V. Start: 8:47 AM Stop: 8:47 AM Medication: Versed Amount: 1 mg Route: I.V. Start: 8:47 AM Stop: 8:47 AM Medication: Fentanyl Amount: 25 mcg Route: I.V. Start: 8:48 AM Stop: 8:48 AM Medication: Heparin Amount: 4000 units Route: I.V. Start: 9:08 AM Stop: 9:08 AM Medication: Versed Amount: 1 mg Route: I.V. Start: 9:08 AM Stop: 9:08 AM Medication: Fentanyl Amount: 25 mcg Route: I.V. Start: 9:32 AM Stop: 9:32 AM Medication: Plavix Amount: 300 mg Route: P.O. I, the attending physician, have reviewed and verified all procedure medications. Yes, all medications given per verbal order History/Risk Factors Hypertension: Yes Dyslipidemia: Yes Peripheral Arterial Disease (PAD): No Myocardial Infarction (WI): No Obesity: No Renal Disease: No Tobacco Use: Former Prior Interventions PCI: No CABG: No Valve Surgery: No Report Signatures Finalized by Marbella Diallo MD on 05/04/2020 04:00 PM
--- NOTE | 2020-04-27 07:33 | P.HP_ITS ---
Same Day Surgery H&P Indication for Procedure/HPI DATE OF PROCEDURE: April 27, 2020 CHIEF COMPLAINT/INDICATIONFOR SURGICAL PROCEDURE: Worsening of shortness of breath in a patient with severe aortic stenosis PREOP DIAGNOSIS: Severe /[id number] AI/preop PLANNED PROCEDRUE: Operation Date: 04/27/20 07:00 Proposed Procedures p left and right Cardiac Catheterization 94551 I35.0(Bilateral) - Marbella Diallo MD 75-year-old male past medical history significant for hypertension hyperlipidemia TIA and history of aortic stenosis for worsening of symptoms and shortness of breath had echocardiogram which showed aortic stenosis has progressed from moderate to severe category by AI has progressed from mild to moderate. Since patient symptoms has worsened he was brought in for left and right heart cath before referring for aortic valve replacement assessment. Patient has been explained by myself all risk benefit and alternative for the procedure. He has been explained the risk for stroke, major minor bleed, infection, urgent emergent surgery such as CABG or vascular surgery, worse case scenario . Patient has been explained all the risk benefit and alternative for percutaneous intervention if indicated. Medications/Allergies* Home Medications Medication Instructions Recorded Confirmed Type aspirin 81 mg tablet,delayed 81 mg PO ONCE 02/21/19 04/26/20 History release antiarthritic combination no.2 900 900 mg PO DAILY 07/15/19 04/27/20 History mg tablet ascorbic acid (vitamin C) 1,000 mg 1 gm PO DAILY tab 07/15/19 04/27/20 History tablet Cod Liver Oil plus Fidel and D3 425 mg PO DAILY 04/26/20 04/26/20 History TheraTears 04/26/20 History Triple Magnesium Complex 400 mg PO BEDTIME 04/26/20 04/26/20 History baclofen 10 mg PO BID 04/26/20 04/26/20 History loratadine 10 mg PO DAILY 04/26/20 04/26/20 History melatonin 20 mg PO BEDTIME 04/26/20 04/26/20 History Allergies/Adverse Reactions Allergy/AdvReac Type Severity Reaction Status Date / Time No Known Allergies Allergy Verified 03/16/20 14:32 Current Medications: Generic Name Dose Route Start Last Admin Trade Name Freq PRN Reason Stop Dose Admin Sodium Chloride 1,000 mls @ 50 mls/hr 04/27/20 06:00 04/27/20 06:36 Sodium Chloride 0.9% IV 04/28/20 01:59 Not Given .Q20H ONE Pertinent History/Comorbid Conditions* Medical History (Updated 03/21/20 @ 00:00 by ) Aortic stenosis, moderate Aortic stenosis, severe Hyperlipidemia Hypertension Osteoarthritis of right glenohumeral joint Shortness of breath Family History (Updated 02/21/19 @ 08:33 by Cathy Mendiola LPN) Denies family history of Diabetes CAD (coronary artery disease) Clotting disorder Dementia Hyperlipidemia Psychiatric illness Chronic kidney disease (CKD) Suicide Anesthesia complication Bleeding disorder Family history of premature coronary artery disease Lung disease Cancer Hypertension Stroke Social History Smoking and tobacco status: former smoker Alcohol intake: former Pertinent Exam Findings alert, oriented x 3, clear to auscultation bilaterally and regular rate & rhythm Conscious Sedation Assessment PATIENT ASSESSED PRIOR TO SEDATION, WITH NO CHANGE NOTED: Yes AIRWAY EVAL/ANESTHESIA PLAN: ASA II, Risks, benefits & alternatives of sedation and/or procedure discussed and Patient agrees to continue as planned Recommendations Surgery/Procedure today Coding Level of Care Code Acute Client Services Director for Jose David Garibay
--- NOTE | 2020-04-27 10:06 | PC.NURSE ---
0945 recd post cath with sheath to right ac, right groin and tr band with reported 17mlinflation. no hematomas.
--- NOTE | 2020-04-27 10:22 | PC.NURSE ---
neuro intact. right limited at this time d/t tr band
--- NOTE | 2020-04-27 10:31 | PC.NURSE ---
pt. states he has had a stomach flu. (diarrhea and vomiting for about 6days.) not been able to eat much. states he may have gotten food poisioning after eating at a [place] restaurant..
[2020-04-27 14:01] LABS: Partial Thromboplastin Time 37.5 SECONDS (23.9-36.7)
--- NOTE | 2020-04-27 14:49 | PC.NURSE ---
3ml. released from tr band Q 15 min. until off. sheath removed from right ac, intact. pressure applied for 10 min. no oozing from site or hematoma formation. sheath removed from right groin, intact. pressure applied for 10 min. no oozing at site. or hematoma. pressure dressing applied. instructions to call for any sudden shortness of breath, flank pain, chest pain.
--- NOTE | 2020-04-27 16:47 | PC.NURSE ---
right side cath sites are asymptomatic.
[2020-04-27] MEDS: temazepam 15 mg Capsule PO (19:49)
--- NOTE | 2020-04-27 20:09 | PC.NURSE ---
Received bed side shift report from off going nurse. Pt's plan of care reviewed. Pt is alert and oriented and able to make his own decisions. Pt is currently resting in bed. Respirations are even and unlabored no s/sx of distress noted. Pt denies any pains or concerns at this time. Puncture sites to the right AC, radial, and groin are clean, dry, and intact. No s/sx of bleeding or hematoma noted. Sites are soft when palpated. Pt denies any pain at sites when palpated. Bed in lowest and locked position, call light and water within reach, x's 2 rails up. Will continue to monitor pt.
[2020-04-27] MEDS: ALPRAZolam 0.25 mg Tablet PO (23:54)
[2020-04-28] VITALS: BP 121/58; PULSE 65; RESP 24; TEMP 36.6; O2SAT 92
[2020-04-28 04:00] VITALS: BP 134/69; PULSE 62; RESP 20; TEMP 36.9; O2SAT 94
[2020-04-28 04:52] LABS: Basophils % 0.4 %; Eosinophils # 0.3 10^3/uL (0.0-0.8); Eosinophils % 4.1 %; Hematocrit 44.9 % (42.0-52.0); Hemoglobin 14.5 g/dL (11.7-16.6); Lymphocytes # 1.7 10^3/uL (0.8-4.8); Lymphocytes % 23.6 %; Mean Corpuscular HGB Conc 32.3 g/dL (30.0-36.0); Mean Corpuscular Hemoglobin 28.6 pg (28.0-34.0); Mean Corpuscular Volume 88.6 fL (80-94); Mean Platelet Volume 10.9 fL (7.4-10.4); Monocytes # 0.5 10^3/uL (0.2-0.9); Neutrophils # 4.59 10^3/uL (1.8-7.7); Neutrophils % 64.5 %; Nucleated Red Blood Cells % 0 %; Platelet Count 188 10^3/cmm (130-400); Red Blood Count 5.07 10^6/uL (4.1-5.3); Red Cell Distribution Width 12.2 % (12.1-15.1); White Blood Count 7.1 10^3/uL (4.0-10.0)
[2020-04-28 05:08] LABS: Anion Gap 10.3 (5-19); Blood Urea Nitrogen 14 mg/dL (8-23); Calcium 8.8 mg/dL (8.5-10.5); Carbon Dioxide 30 mmol/L (22-29); Chloride 102 mmol/L (98-107); Glucose 103 mg/dL (65-115); Osmolality Calculated 287 mOsm/kg (285-295); Potassium 4.3 mmol/L (3.5-5.1); Sodium 138 mmol/L (136-145)
[2020-04-28 06:00] VITALS: PULSE 62
[2020-04-28 07:37] VITALS: BP 139/71; PULSE 67; RESP 20; TEMP 36.7; O2SAT 94
--- NOTE | 2020-04-28 07:54 | P.DS_ITS ---
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 Coronary angiogram was consistent with mid and distal signific ant RCA stenosis. Since patient declined open heart and would like to prefer only TAVR and after discussing with CT surgery Dr. Gilmore who is also of the opinion that he will be better off with TAVR I proceeded with mid and distal RCA intervention with 3 stents 2 in the middle due to geographical miss 1 patient moved on the table. Excellent angiographic result with UV-3 flow was achieved. Patient recovered overnight without any complication. Right wrist and right groin looks good. Please note the right groin was used for venous access for right heart cath. Patient was loaded with 300 mg of clopidogrel in the Enrichment Teacher he is already on clopidogrel. He is feeling already better. We will discharge him today. He will be following up with Ms. Luci Harris cardiology nurse practitioner in 7 days and myself in 6 to 8 weeks. He preferred to be referred to [facility]. I will send his referral for TAVR. Patient has been advised in case of worsening of shortness of breath or chest pain he can call my office . Physical Exam Narrative: EXAM NARRATIVE: GENERAL: Patient is alert, awake and oriented x3. NECK: No jugular vein distension. HEENT: No cyanosis. No icterus. No pallor. HEART: Regular S1 S2 not well heard. 2/6 sys murmur, rub or gallop. LUNGS: Clear to auscultate bilaterally. ABDOMEN: Soft, nontender and nondistended. Positive bowel sounds. No guarding, rebound or tenderness. CENTRAL NERVOUS SYSTEM: Grossly nonfocal. EXTREMITIES: Lower extremities without edema bilaterally. Pulses palpable in the lower extremities, both dorsalis pedis and posterior tibial. Discharge Data Data Completed and Pending: Pending at discharge Category Date Time Status PAIN MANAGEMENT NURSE request for service Routin e Exams 04/27/20 07:00 Taken PAIN MANAGEMENT NURSE request for service Routin e Exams 04/28/20 06:45 Ordered Labs from last 24 hours 04/28/20 04/28/20 04/27/20 04:23 04:23 13:40 WBC 7.1 RBC 5.07 Hgb 14.5 Hct 44.9 MCV 88.6 MCH 28.6 MCHC 32.3 RDW 12.2 Plt Count 188 MPV 10.9 H Neut % (Auto) 64.5 Lymph % (Auto) 23.6 [place] % (Auto) 7.0 Eos % (Auto) 4.1 Baso % (Auto) 0.4 Neut # (Auto) 4.59 Lymph # (Auto) 1.7 [place] # (Auto) 0.5 Eos # (Auto) 0.3 Baso # (Auto) 0.0 Nucleated RBC % (a uto) 0 Nucleated RBCs # 0.0 APTT 37.5 H Sodium 138 Potassium 4.3 Chloride 102 Carbon Dioxide 30 H Anion Gap 10.3 BUN 14 Creatinine 0.8 GFR Calculation Not Reportable Glucose 103 Calculated Osmolal ity 287 Calcium 8.8 Vitals: Last Vital Signs Temp 98.0 F 04/28/20 07:37 Pulse 67 04/28/20 07:37 Resp 20 H 04/28/20 07:37 BP 139/71 04/28/20 07:37 Pulse Ox 94 04/28/20 07:37 Discharge Plan Discharge Patient Disposition: Home Condition: Stable Prescriptions: New pantoprazole [Protonix] 40 mg tablet,delayed release (DR/EC) 40 mg PO DAILY Qty: 30 RF: 5 Continued aspirin 81 mg tablet,delayed release (DR/EC) 81 mg PO ONCE RF: 0 celecoxib [Celebrex] 100 mg capsule 100 mg PO DAILY 30 Days Qty: 60 RF: 0 glucosamine-chondroitin 900 mg tablet 900 mg PO DAILY RF: 0 ascorbic acid (vitamin C) 1,000 mg tablet 1 gm PO DAILY RF: 0 simvastatin 20 mg tablet See Rx Instructions .ROUTE .COMPLEX 90 Days Qty: 90 RF: 0 amlodipine 10 mg tablet See Rx Instructions .ROUTE .COMPLEX Qty: 60 RF: 0 clopidogrel 75 mg tablet See Rx Instructions .ROUTE .COMPLEX Qty: 90 RF: 0 Cod Liver Oil plus Fidel and D3 425 mg gel 425 mg PO DAILY RF: 0 TheraTears gel RF: 0 Triple Magnesium Complex 400 mg tablet 400 mg PO BEDTIME RF: 0 baclofen 10 mg tablet 10 mg PO BID RF: 0 loratadine 10 mg tablet 10 mg PO DAILY RF: 0 melatonin 10 mg tablet 20 mg PO BEDTIME RF: 0 Discharge Orders: Discharge Order (Routine); Ordered 04/28/20 Ordered By: Marbella Diallo Discharge Diet: Cardiac Discharge Activity: Increase activity as tolerated Patient Instructions: Left Heart Catheterization (DC), Right Heart Catheterization (DC), Coronary Angioplasty (DC) Activity Restrictions/Additional Instructions: Follow-up with Luci Harris in 7 days. Follow-up with Dr. Diallo in 6 to 8 weeks. You will be referred for TAVR Discharge Attestations Time Spent in Discharge Care*: less than 30 min Specific Discharge Activities: educating patient Quality Metrics Clinical Quality Measures During this hospital stay, did patient experience: None Coding Level of Care Code Established Pt Acute Chg FW DC note Patient Type Established History Expanded Problem Focused Exam Expanded Problem Focused Medical Decision Making Moderate Complexity
[2020-04-28 08:22] VITALS: BP 139/71; PULSE 67; RESP 20; TEMP 36.7; O2SAT 94
[2020-04-28] MEDS: atorvastatin 40 mg Tablet 20 MG PO (09:26)
[2020-04-28] MEDS: clopidogrel 75 mg Tablet PO (09:27)
[2020-04-28] MEDS: amlodipine 10 mg Tablet PO (09:27)
[2020-04-28] MEDS: aspirin 81 mg EC Tablet PO (09:27)
== END 2020-04-28 10:40 | disposition home or self-care (01) ==
LOC: CCL 05:42 → CSU 04-28 07:54 → ICU 05-03 07:45 → CSU 05-03 07:45
PROVIDERS: PCP Registered Nurse; Visit Provider Internal Medicine Cardiovascular Disease
DX: I25.10 Atherosclerotic heart disease of native coronary artery without angina pectoris (principal); R06.02 Shortness of breath; R07.89 Other chest pain; I10 Essential (primary) hypertension; E78.5 Hyperlipidemia, unspecified; Z86.73 Personal history of transient ischemic attack (TIA), and cerebral infarction without residual deficits; I35.0 Nonrheumatic aortic (valve) stenosis; Z79.82 Long term (current) use of aspirin; Z87.891 Personal history of nicotine dependence
CPT/HCPCS: 36415; 80048; 85025; 85347; 85730; 93456; C1725; C1751; C1769; C1874; C1887; C1894; C9600; J1644; J2250; J3010; J3490; J7030; Q0163; Q9967

== ENCOUNTER → 2020-05-05 14:59 | Outpatient (BNVA) | payer OTHER, MEDICARE, SELFPAY | PROVIDERS: PCP Registered Nurse; Visit Provider Nurse Practitioner Family | DX: I35.0 Nonrheumatic aortic (valve) stenosis (principal) | CPT/HCPCS: 80048 ==

== ENCOUNTER 2020-06-03 17:47 | Emergency (ER) | payer OTHER, MEDICARE, SELFPAY ==
[2020-06-03 18:11] VITALS: BP 164/75; PULSE 78; RESP 18; TEMP 36.1; O2SAT 95; BMI 29.7
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
--- NOTE | 2020-06-03 19:21 | XR_ITS ---
WS: [id number] Left foot, 3 views, 06/03/2020 Clinical Data: foot injury Comparison: None. Findings: No foot fractures or dislocations are seen. No bone destruction or erosion is noted. The joint spaces and soft tissues are normal. The oblique fracture of the distal left fibula is noted. XR/XR foot LT min 3V* [id number] Impression: Negative left foot.
--- NOTE | 2020-06-03 19:21 | XR_ITS ---
WS: [id number] Left ankle, 3 views, 06/03/2020 Clinical Data: ankle injury with pain Comparison: None. Findings: There is an oblique fracture of the distal left fibula. The distal left tibia is intact. The ankle mo rtise is normal. There is soft tissue swelling over the lateral malleolus. XR/XR ankle LT min 3V* [id number] Impression: Oblique fracture of distal left fibula at the level of the ankle mortise.
--- NOTE | 2020-06-03 19:21 | USCV_ITS ---
Markos Najera Age: 75 Gender: M : 1945 Exam Date: 06/03/2020 20:01 Ordering Phys: Sudeep Smith Technologist: Mik Luther Exam Location: [facility] [place]_ Indication: LT LEG PAIN AND SWELLING HISTORY: Lower extremity pain. PROCEDURES: Venous duplex imaging was performed in only the left lower extremity. The following venous structures were evaluated: common femoral vein, profunda vein, proximal portion of the greater saphenous vein, superficial femoral vein, and the popliteal vein. In addition, the posterior tibial and peroneal trunk were evaluated. On the left side, the common femoral, superficial femoral, profunda femoral, popliteal, posterior tibial, greater saphenous veins, and the peroneal trunk were identified and interrogated in the standard fashion. These veins were found to be easily compressible with spontaneous blood flow. No evidence of insufficiency or thrombus noted. FINDINGS: Normal 2-D Doppler and augmentation and compressibility throughout the lower extremity venous structures. Additional imaging through the proximal calf veins also reveals no thrombus. Limited evaluation of the greater saphenous vein is patent with no thrombus.. CONCLUSIONS No evidence of left lower extremity DVT. Parth Espino MD (Electronically Signed) Final Date: 04 June 2020 13:09 S
--- NOTE | 2020-06-03 19:21 | XR_ITS ---
WS: [id number] Left leg including the tibia and fibula, AP and lateral views, 06/03/2020 Clinical Data: lower leg injury with pain Comparison: None. Findings: There are no tibial fractures. The proximal left fibula is intact. There is an oblique fracture of th e distal left fibula. The soft tissues are normal. XR/XR tibia fibula LT 2V [id number] Impression: Oblique fracture distal left fibula.
[2020-06-03] MEDS: HYDROcodone-acetaminophen 5-325 mg Tablet 1 TAB PO (20:23)
--- NOTE | 2020-06-04 09:21 | DCPLANNER ---
transition program manager had message to schedule a follow up appointment for patient with ortho. transition program manager called the ortho clinic, spoke with Bonnie, gave clinic patients information. transition program manager was told that patients information would be printed and reviewed. Clinic will call patient with appointment information.
--- NOTE | 2020-06-08 07:37 | DCPLANNER ---
Patient has a follow up appointment scheduled for Monday, June 08, 2020 at 9:[address] Duran at ortho. Clinic will call patient with appointment information.
--- NOTE | 2020-06-09 10:59 | DCPLANNER ---
Patient had a follow up appointment scheduled for 06.08.[address] Duran at [facility] - patient did attend appointment.
== END 2020-06-03 21:11 | disposition home or self-care (01) ==
PROVIDERS: Emergency Provider Physician Assistant; PCP Registered Nurse
DX: S82.832A Other fracture of upper and lower end of left fibula, initial encounter for closed fracture (principal); Z79.82 Long term (current) use of aspirin; Z79.02 Long term (current) use of antithrombotics/antiplatelets; E78.5 Hyperlipidemia, unspecified; I10 Essential (primary) hypertension; Z87.891 Personal history of nicotine dependence; X50.9XXA Other and unspecified overexertion or strenuous movements or postures, initial encounter
CPT/HCPCS: 29515; 73590; 73610; 73630; 93971; 99283

== ENCOUNTER → 2020-06-08 10:16 | Outpatient (BNVA) | payer OTHER, MEDICARE, SELFPAY | PROVIDERS: PCP Registered Nurse; Referring Provider Physician Assistant; Visit Provider Orthopaedic Surgery | DX: S82.62XA Displaced fracture of lateral malleolus of left fibula, initial encounter for closed fracture (principal); X58.XXXA Exposure to other specified factors, initial encounter | CPT/HCPCS: 73610 ==

== ENCOUNTER 2020-06-08 14:18 | Outpatient (CLI) | payer OTHER, MEDICARE, SELFPAY | END 2020-06-08 14:19 | LOC: SPT 14:19 | PROVIDERS: PCP Registered Nurse; Visit Provider Orthopaedic Surgery | DX: Z46.89 Encounter for fitting and adjustment of other specified devices (principal); S82.63XD Displaced fracture of lateral malleolus of unspecified fibula, subsequent encounter for closed fracture with routine healing; X58.XXXD Exposure to other specified factors, subsequent encounter | CPT/HCPCS: 97760; L4361 ==

== ENCOUNTER → 2020-06-11 13:44 | Outpatient (BNVA) | payer OTHER, MEDICARE, SELFPAY | PROVIDERS: PCP Registered Nurse; Visit Provider Orthopaedic Surgery | DX: Z01.812 Encounter for preprocedural laboratory examination (principal); Z20.822 Contact with and (suspected) exposure to COVID-19 | CPT/HCPCS: 87635 ==

== ENCOUNTER 2020-06-17 06:34 | Day surgery (SDC) | payer OTHER, MEDICARE, SELFPAY ==
[2020-06-17] VITALS (11 sets, daily range): BP systolic 121–165; BP diastolic 60–100; PULSE 65–90; RESP 16–19; TEMP 36.6–36.9; O2SAT 92–96; BMI 29.7
--- NOTE | 2020-06-17 | SCC_ITS ---
Procedure Done: Open reduction internal fixation left lateral malleolus 15.9 seconds of fluoroscopic guidance, for a cumulative dose of 0.50 mGy, was provided to Dr. Blank by the radiology department. C-arm images of the LEFT ankle were saved for the patient's permanent record. [facility]ITAL[facility]
--- NOTE | 2020-06-17 | XR_ITS ---
WS: [id number] Left ankle, C-arm fluoroscopy, 06/17/2020 Clinical Data: FRACTURE OF LATERAL MALLEOLUS Comparison: Left ankle, 06/08/2020. Findings: A lateral plate on the distal left fibula is fixed with multiple orthopedic screws. The plate is redu cing the fracture of the distal left fibula. XR/XR ankle LT 2V [id number] Impression: Internal fixation of fracture of distal left fibula.
--- NOTE | 2020-06-17 07:20 | ANES.PREANE2 ---
Pre-Anesthetic Assessment Pre-Anesthetic Assessment: Height/Weight: Height 1.7 m Weight 86.183 kg Temp Pulse Resp BP Pulse Ox 98 F 65 18 130/61 94 06/17/20 06:51 06/17/20 06:51 06/17/20 06:51 06/17/20 06:51 06/17/20 06:51 Preop Diagnosis: Fracture left lateral malleolus Proposed Procedure: Operation Date: 06/17/20 08:20 Proposed Procedures p ORIF Ankle 53094 S82.63XA(Left) - Robi Blank MD Was Beta Princess taken within 24 hours: N/A Was Clonidine taken within 24 hours: N/A Last intake: Intake Last Liquid Date 06/16/20 Last Liquid Time 21:00 Last Solid Date 06/16/20 Last Solid Time 21:00 Social: Social History: No alcohol and No tobacco Exam: Pre-Anes Outpt Exam: alert, oriented x 3, clear to auscultation bilaterally and regular rate & rhythm Airway: Submandibular: WNL Cervical ROM: WNL MP: 2 Dentition: False CV/HEM: CV/HEM: CAD (stents 05/02) and Murmur (Severe getting prepared for TAVR) GI: GI: GERD Metabolic: Metabolic: Hyperlipidemia Anesthetic Plan: ASA status: 3 Anesthesia: General Risk of > 500 ml blood loss (7ml/kg in children): No PFSH Anesthesia PFSH: Medical History Aortic stenosis, severe Arthritis of right hip Arthritis of right knee Hyperlipidemia Hypertension Lumbar degenerative disc disease Osteoarthritis of right glenohumeral joint Shortness of breath Family History Denies family history of Diabetes CAD (coronary artery disease) Clotting disorder Dementia Hyperlipidemia Psychiatric illness Chronic kidney disease (CKD) Suicide Anesthesia complication Bleeding disorder Family history of premature coronary artery disease Lung disease Cancer Hypertension Stroke Social History Smoking and tobacco status: former smoker Alcohol intake: former Data Anesthesia Cardiac Studies: No Data to Display
[2020-06-17] MEDS: sodium chloride 0.9% 1,000 ML 30 ML IV (07:42)
--- NOTE | 2020-06-17 08:02 | W.PM.OPSUD ---
Surgery/Procedure H&P Update DATE OF PROCEDURE: June 17, 2020 DATE H&P PERFORMED: 06/08/20 PREOP DIAGNOSIS: Fracture left lateral malleolus PLANNED PROCEDURE: Operation Date: 06/17/20 08:20 Proposed Procedures p ORIF Ankle 60954 S82.63XA(Left) - Robi Blank MD
--- NOTE | 2020-06-17 09:01 | PM.OP ---
Operative Report Date of procedure: June 17, 2020 Pre-op Diagnosis: Fracture left lateral malleolus Post-op diagnosis: same Post-op Findings: Same Procedure Done: Open reduction internal fixation left lateral malleolus Implants: Beata Variax lateral malleolar plate Pathology: none sent Surgeon: Robi Blank Anesthesia: General Estimated blood loss (mL): 10 Tourniquet time (min): 30 Complications: None Findings: Patient had a displaced lateral malleolar spiral fracture at the level of the mortise Disposition: PACU Procedure: The patient was taken to the operating room and given a general anesthesia. He was given 2 g of Ancef. He is prepped and draped in the supine position with a bump beneath the left hip. A tourniquet was applied to the left thigh. A timeout was performed. The tourniquet was inflated to 325 mmHg. A lateral incision 6 cm long was made from the tip of the lateral malleolus extending proximally along the border of the fibula. Dissection was carried down full-thickness to the lateral fibula. Utilizing a [place] periosteum was elevated anteriorly and posteriorly. The fracture site was debrided with a [place] removing any interposed soft tissue. A lobster claw clamp was used to reduce the fibula. The plate was placed over the lateral malleolus and fixed proximally with 4 bicortical and distally with 5 locking screws. Intraoperative images showed anatomic reduction of the fibula. A lateral displacing force was applied across the ankle with no lateral instability of the talus in the mortise noted. Wounds were irrigated with saline. Deep tissues were closed with 2-0 Vicryl. Skin subcutaneous tissues were closed with 2-0 Vicryl. The skin was closed with skin selena. Xeroflo gauze 4 x 4's and compressive cotton padding and Edi wrap were applied. The patient is placed back in his boot. He was extubated taken recovery in stable condition.
[2020-06-17] MEDS: HYDROcodone-acetaminophen 5-325 mg Tablet 1 TAB PO (10:04)
[2020-06-17] MEDS: morphine 4 mg/mL SDV 1 mL IVP (10:16)
[2020-06-17] MEDS: HYDROmorphone 1 mg/mL INJ 1 mL 0.5 MG IVP (10:37)
--- NOTE | 2020-06-17 12:32 | ANE.PACU2 ---
Inpatient post-anesthesia follow up: Airway intact: Yes Vital signs: Temperature 98.4 F Pulse Rate 67 Respiratory Rate 18 Blood Pressure 121/60 Pulse Oximetry 92 Oxygen Delivery Me thod Nasal Cannula Oxygen Flow Rate 2 Fraction of Inspir ed Oxygen Hydration adequate: Yes Nausea and vomiting: No Pain level: 2 Mental status: Baseline
== END 2020-06-17 11:21 | disposition home or self-care (01) ==
PROVIDERS: PCP Registered Nurse; Visit Provider Orthopaedic Surgery
PROC: (CPT 27792; principal; 2020-06-17 08:10)
DX: S82.62XA Displaced fracture of lateral malleolus of left fibula, initial encounter for closed fracture (principal); X58.XXXA Exposure to other specified factors, initial encounter; I25.10 Atherosclerotic heart disease of native coronary artery without angina pectoris; Z95.5 Presence of coronary angioplasty implant and graft; K21.9 Gastro-esophageal reflux disease without esophagitis; E78.5 Hyperlipidemia, unspecified; I10 Essential (primary) hypertension; M19.90 Unspecified osteoarthritis, unspecified site; F17.210 Nicotine dependence, cigarettes, uncomplicated; Z79.82 Long term (current) use of aspirin
CPT/HCPCS: 27792; 73600; 76000; 96365; C1713; J0690; J1170; J1580; J2250; J2270; J2405; J2704; J3010; J3490; J7030

== ENCOUNTER 2020-07-14 00:39 | Emergency (ER) | payer OTHER, MEDICARE, SELFPAY ==
--- NOTE | 2020-07-14 00:43 | XRR_ITS ---
PROCEDURE INFORMATION: Exam: XR Chest Exam date and time: 07/14/2020 12:45 AM Age: 75 years old Clinical indication: Chest pressure; Patient HX: Chest pain; Additional info: Cp TECHNIQUE: Imaging protocol: XR of the chest. Views: 1 view. COMPARISON: CR XR chest 1V portable [id number] 03/12/2020 9:41 PM FINDINGS: Lungs: Unremarkable. No consolidation. Pleural spaces: Unremarkable. No pleural effusion. No pneumothorax. Heart/Mediastinum: Unremarkable. No cardiomegaly. Bones/joints: Unremarkable. XR/XR chest 1V portable [id number] IMPRESSION: No acute findings.
--- NOTE | 2020-07-14 00:43 | ECG_ITS ---
[facility] Test Date: 2020-07-14 Pat Name: Markos Najera Department: Room: Gender: Male Digital Assistant: : 1945 Requested By: Jay Noble Order Number: [id number] Zoltan MD: Geremias Castelan M.D. Measurements Intervals [place] Rate: 76 P: 55 RI: 221 QRS: -68 QRSD: 136 T: 68 QT: 398 QTc: 448 Interpretive Statements SINUS RHYTHM WITH FIRST DEGREE AV BLOCK RIGHT BUNDLE BRANCH BLOCK [120+ ms QRS DURATION, UPRIGHT V1, 40+ ms S IN I/aVL/V4/V5/V6] LEFT ANTERIOR FASCICULAR BLOCK [QRS AXIS <= -45, QR IN I, RS IN II] Compared to ECG 03/13/2020 00:06:28 No significant changes Electronically Signed On 07-15-2020 18:54:45 CDT by Geremias Castelan M.D. [id number]
[2020-07-14 00:44] VITALS: BP 171/70; PULSE 75; RESP 20; TEMP 36.6; O2SAT 96; BMI 30.8
--- NOTE | 2020-07-14 00:54 | W.ED.CHESTPA ---
HPI - Chest Pain General: Chief Complaint: Chest Pain Stated Complaint: chest pain dizziness, weakness Time Seen by Provider: 07/14/20 00:45 Source: patient Mode of arrival: ambulatory Limitations: no limitations History of Present Illness: HPI narrative: 75-year-old male states he started having some chest pain with nausea at 11 PM. Does have a history of aortic stenosis and had stents placed during a cath 3 months ago. He denies any diaphoresis. He has had some shortness of breath. States his pain has improved here. Denies any worsening improving factors. Associated symptoms: Reports dyspnea; Deny abdominal pain, fever(s), nausea or vomiting Review of Systems Const: Denies: fever(s), chills, body aches or change in appetite Eyes: Denies: blurry vision or eye discomfort ENMT: Denies: throat pain or dental pain Card: Reports: chest pain Resp: Reports: dyspnea GI: Denies: abdominal pain, nausea, vomiting or diarrhea : Denies: dysuria Musc: Denies: neck pain or back pain Skin/Breast: Denies: rash Neuro: Denies: headache(s) Psych: Denies: depression Carl/Lymph: Denies: easy bruising All/Imm: Denies: urticaria PFSH ED PFSH: Medical History Aortic stenosis, severe Arthritis of right hip Arthritis of right knee Hyperlipidemia Hypertension Lumbar degenerative disc disease Osteoarthritis of right glenohumeral joint Shortness of breath Family History Denies family history of Diabetes CAD (coronary artery disease) Clotting disorder Dementia Hyperlipidemia Psychiatric illness Chronic kidney disease (CKD) Suicide Anesthesia complication Bleeding disorder Family history of premature coronary artery disease Lung disease Cancer Hypertension Stroke Social History Smoking and tobacco status: former smoker Alcohol intake: former Physical Exam Const: COMMON NORMALS: no acute distress, patient oriented x3 and healthy appearing HENMT: COMMON NORMALS: normocephalic and atraumatic HEAD & SCALP: normocephalic and atraumatic Eye: COMMON NORMALS: Equal, round and reactive pupils present and EOMs intact bilaterally PUPIL: Yes Equal, round and reactive pupils present Neck/C-Spine: COMMON NORMALS: full ROM and supple Chest: COMMONS NORMALS: normal inspection of the chest and normal palpation of entire chest wall Resp: COMMON NORMALS: normal respiratory effort, No retractions, No use of accessory muscles and clear to auscultation bilaterally AUSCULTATION: clear to auscultation bilaterally Cardio: COMMON NORMALS: regular rate, regular rhythm and No murmurs present (Cardio) RATE: regular rate RHYTHM: regular rhythm GI: COMMON NORMALS: Normal to inspection, nondistended, normoactive bowel sounds present, Soft to palpation, non-tender and no masses PALPATION: Yes Soft to palpation Extremity: COMMON NORMALS: normal to inspection and full ROM Neuro: COMMON NORMALS: patient oriented x3, moves all extremities and no focal motor deficits Psych: COMMON NORMALS: mental status grossly normal, Normal thought process present and cooperative THOUGHT PROCESS: Normal thought process present Skin: COMMON NORMALS: no rashes or lesions noted and no wounds GENERAL SKIN EXAM: no rashes or lesions noted Course Vital Signs: Vital signs: Vital Signs Temperature 97.9 F 07/14/20 00:44 Pulse Rate 88 07/14/20 03:26 Respiratory Rate 18 07/14/20 03:26 Blood Pressure 152/68 07/14/20 03:26 Pulse Oximetry 99 07/14/20 03:26 MDM - Chest Pain MDM Narrative: Medical decision making narrative: Patient presents here with chest pain that is since resolved. His initial and repeat troponins here are negative. 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 He is seeing surgeon in [place] next month for an aortic valve repair. He is to follow-up with Dr. Arndt as well. He is return to ER if he has any more pain. He understands agrees the plan. Lab Data: Labs: Lab Results 07/14/20 07/14/20 07/14/20 Range/Units 00:45 00:45 00:45 WBC 6.7 (4.0-10.0) 10^3/ uL RBC 5.06 (4.1-5.3) 10^6/u L Hgb 14.4 (11.7-16.6) g/dL Hct 45.7 (42.0-52.0) % MCV 90.3 (80-94) fL MCH 28.5 (28.0-34.0) pg MCHC 31.5 (30.0-36.0) g/dL RDW 14.1 (12.1-15.1) % Plt Count 205 (130-400) 10^3/c mm MPV 11.2 H (7.4-10.4) fL Neut % (Auto) 49.6 % Lymph % (Auto) 36.8 % [place] % (Auto) 10.1 % Eos % (Auto) 3.0 % Baso % (Auto) 0.4 % Neut # (Auto) 3.33 (1.8-7.7) 10^3/u L Lymph # (Auto) 2.5 (0.8-4.8) 10^3/u L [place] # (Auto) 0.7 (0.2-0.9) 10^3/u L Eos # (Auto) 0.2 (0.0-0.8) 10^3/u L Baso # (Auto) 0.0 (0.0-0.1) 10^3/u L Nucleated RBC % (a uto) 0 % Nucleated RBCs # 0.0 /100WBC PT 12.70 (12.1-14.9) SECO NDS INR 0.92 (0.8-1.2) D-Dimer (0-0.59) ug/mIFE U Sodium 142 (136-145) mmol/L Potassium 4.3 (3.5-5.1) mmol/L Chloride 101 (98-107) mmol/L Carbon Dioxide 32 H (22-29) mmol/L Anion Gap 13.3 (5-19) BUN 21 (8-23) mg/dL Creatinine 0.8 (0.7-1.2) mg/dL GFR Calculation Not Reportable Glucose 127 H (65-115) mg/dL Calculated Osmolal ity 299 H (285-295) mOsm/k g Calcium 9.5 (8.5-10.5) mg/dL Total Bilirubin 0.3 (0.15-1.2) mg/dL AST 20 (0-40) U/L ALT 17 (0-41) U/L Alkaline Phosphata se 68 (40-130) IU/L Troponin T Baselin e (0-15) ng/L Troponin T 120 Min [place] (0-15) ng/L Delta Troponin T (0-10) ABS# NT-Pro-B Natriuret Pep 27 (0-450) pg/mL Total Protein 6.6 (6.6-8.7) g/dL Albumin 4.5 (3.5-5.2) g/dL Globulin 2.1 (1.3-4.6) g/dL 07/14/20 07/14/20 07/14/20 Range/Units 00:45 00:45 02:42 WBC (4.0-10.0) 10^3/ uL RBC (4.1-5.3) 10^6/u L Hgb (11.7-16.6) g/dL Hct (42.0-52.0) % MCV (80-94) fL MCH (28.0-34.0) pg MCHC (30.0-36.0) g/dL RDW (12.1-15.1) % Plt Count (130-400) 10^3/c mm MPV (7.4-10.4) fL Neut % (Auto) % Lymph % (Auto) % [place] % (Auto) % Eos % (Auto) % Baso % (Auto) % Neut # (Auto) (1.8-7.7) 10^3/u L Lymph # (Auto) (0.8-4.8) 10^3/u L [place] # (Auto) (0.2-0.9) 10^3/u L Eos # (Auto) (0.0-0.8) 10^3/u L Baso # (Auto) (0.0-0.1) 10^3/u L Nucleated RBC % (a uto) % Nucleated RBCs # /100WBC PT (12.1-14.9) SECO NDS INR (0.8-1.2) D-Dimer 0.88 H (0-0.59) ug/mIFE U Sodium (136-145) mmol/L Potassium (3.5-5.1) mmol/L Chloride (98-107) mmol/L Carbon Dioxide (22-29) mmol/L Anion Gap (5-19) BUN (8-23) mg/dL Creatinine (0.7-1.2) mg/dL GFR Calculation Glucose (65-115) mg/dL Calculated Osmolal ity (285-295) mOsm/k g Calcium (8.5-10.5) mg/dL Total Bilirubin (0.15-1.2) mg/dL AST (0-40) U/L ALT (0-41) U/L Alkaline Phosphata se (40-130) IU/L Troponin T Baselin e 12 (0-15) ng/L Troponin T 120 Min [place] 10.81 (0-15) ng/L Delta Troponin T -1.19 L (0-10) ABS# NT-Pro-B Natriuret Pep (0-450) pg/mL Total Protein (6.6-8.7) g/dL Albumin (3.5-5.2) g/dL Globulin (1.3-4.6) g/dL Imaging Data^: CXR: Attestation: I personally reviewed and interpreted this imaging study as follows: Radiologist's impression: [address] [address] XRay Report Signed Patient: Markos Najera Unit #: [id number] : 1945 Age/Sex: 75 / M ADM Date: 07/14/20 Loc: ER Room/Bed: Attending Dr: Ordering Provider/Ordering MD: Jay Noble MD Date of Service: 07/14/20 Procedure(s): XR chest 1V portable [id number] Accession Number(s): [id number] Report Number: [id number] PROCEDURE INFORMATION: Exam: XR Chest Exam date and time: 07/14/2020 12:45 AM Age: 75 years old Clinical indication: Chest pressure; Patient HX: Chest pain; Additional info: Cp TECHNIQUE: Imaging protocol: XR of the chest. Views: 1 view. COMPARISON: CR XR chest 1V portable [id number] 03/12/2020 9:41 PM FINDINGS: Lungs: Unremarkable. No consolidation. Pleural spaces: Unremarkable. No pleural effusion. No pneumothorax. Heart/Mediastinum: Unremarkable. No cardiomegaly. Bones/joints: Unremarkable. XR/XR chest 1V portable [id number] IMPRESSION: No acute findings. CT Chest: Attestation: I personally reviewed and interpreted this imaging study as follows: Radiologist's impression: [facility] [address] [place] [address] CT Scan Report Signed Patient: Markos Najera Unit #: [id number] : 1945 Age/Sex: 75 / M ADM Date: 07/14/20 Loc: ER Room/Bed: Attending Dr: Ordering Provider/Ordering MD: Jay Noble MD Date of Service: 07/14/20 Procedure(s): CT angio chest PE protcl [id number] Accession Number(s): [id number] Report Number: [id number] PROCEDURE INFORMATION: Exam: CTA Chest With Contrast Exam date and time: 07/14/2020 2:09 AM Age: 75 years old Clinical indication: Pain; Shortness of breath; Chest pressure; Patient HX: Chest discomfort with SOB. Ankle fixation on 06/17/2020. Exam repeated. Best run submitted. TECHNIQUE: Imaging protocol: Computed tomographic angiography of the chest with contrast. 3D rendering (Not supervised by radiologist): MIP and/or 3D reconstructed images were created by the technologist. Radiation optimization: All CT scans at this facility use at least one of these dose optimization techniques: automated exposure control; mA and/or kV adjustment per patient size (includes targeted exams where dose is matched to clinical indication); or iterative reconstruction. Contrast material: OMNI 350; Contrast volume: 125 ml; Contrast route: INTRAVENOUS (IV); COMPARISON: CT angio chest abdomen pelvis 03/12/2020 10:42 PM RADIATION DOSE METRICS: Total DLP (mGy-cm): 1815.02 FINDINGS: Pulmonary arteries: No pulmonary embolism. Aorta: 4.2 x 4.4 cm ascending aortic aneurysm. No dissection. Lungs: Unremarkable. No consolidation. No masses. Pleural spaces: Unremarkable. No pneumothorax. No pleural effusion. Heart: Unremarkable. No cardiomegaly. No pericardial effusion. Lymph nodes: Unremarkable. No enlarged lymph nodes. 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 Soft tissues: Unremarkable. CT/CT angio chest PE protcl [id number] IMPRESSION: 1. No pulmonary embolism. 2. 4.2 x 4.4 cm ascending aortic aneurysm. No dissection. 3. 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 EKG Data^: EKG 1: Attestation: I personally reviewed and interpreted this EKG as follows: EKG interpretation date: 07/14/20 EKG interpretation time: 00:46 Interpretation: nsr hr [address] or t wave abnormalities qrs 136 qtc 428 EKG 2: Attestation: I personally reviewed and interpreted this EKG as follows: EKG interpretation date: 07/14/20 EKG interpretation time: 02:34 Interpretation: nsr hr [address] or t wave abnormalities qrs 128 qtc 412 Discharge Plan Discharge Patient Disposition: Home Clinical Impression: Chest pain Qualifiers: Chest pain type: unspecified Qualified Code(s): R07.9 - Chest pain, unspecified Condition: Stable Prescriptions: No Action aspirin 81 mg tablet,delayed release (DR/EC) 81 mg PO QAM RF: 0 acetaminophen 325 mg capsule 325 mg PO QID PRNRF: 0 baclofen 10 mg tablet 10 mg PO BID 30 Days Qty: 60 RF: 2 (DME) Cam Walker See Rx Instructions .ROUTE .MEDSUPPLY Qty: 1 RF: 0 amlodipine 10 mg tablet See Rx Instructions .ROUTE .COMPLEX Qty: 60 RF: 0 clopidogrel 75 mg tablet 75 mg PO QAM Qty: 90 RF: 0 pantoprazole 40 mg tablet,delayed release (DR/EC) 40 mg PO DAILY RF: 0 melatonin 10 mg tablet 20 mg PO BEDTIME RF: 0 ascorbic acid (vitamin C) [Vitamin C With Charlotte Hips] 1,000 mg Tablet 1,000 mg PO QAM RF: 0 simvastatin 20 mg tablet 20 mg PO BEDTIME RF: 0 loratadine [Claritin] 10 mg Tablet 10 mg PO QAM RF: 0 Multivitamin 50 Plus Tablet 1 tab PO QAM RF: 0 Cod Liver Oil plus Fidel and D3 1,250 unit-130 unit-530 mg Capsule 1 cap PO BEDTIME RF: 0 magnesium oxide 400 mg magnesium Tablet 400 mg PO BEDTIME RF: 0 Glucosamine Chondroitin 550-30-1 mg Capsule 1 cap PO BID RF: 0 Discharge Orders: Discharge ED (Routine); Ordered 07/14/20 Ordered By: Jay Noble Referrals: Micah Beaulieu, INTERMEDIATE DESIGNER [Primary Care Provider] - Discharge Diet: Advance as tolerated Discharge Activity: Resume usual activity Patient Instructions: Chest Pain (ED) Coding Level of Care Code ED Counter Waitress/Waiter for Chg Fwd Exam Comprehensive
[2020-07-14 01:00] LABS: Basophils % 0.4 %; Eosinophils # 0.2 10^3/uL (0.0-0.8); Hematocrit 45.7 % (42.0-52.0); Hemoglobin 14.4 g/dL (11.7-16.6); Lymphocytes # 2.5 10^3/uL (0.8-4.8); Lymphocytes % 36.8 %; Mean Corpuscular HGB Conc 31.5 g/dL (30.0-36.0); Mean Corpuscular Hemoglobin 28.5 pg (28.0-34.0); Mean Corpuscular Volume 90.3 fL (80-94); Mean Platelet Volume 11.2 fL (7.4-10.4); Monocytes # 0.7 10^3/uL (0.2-0.9); Monocytes % 10.1 %; Neutrophils # 3.33 10^3/uL (1.8-7.7); Neutrophils % 49.6 %; Nucleated Red Blood Cells % 0 %; Platelet Count 205 10^3/cmm (130-400); Red Blood Count 5.06 10^6/uL (4.1-5.3); Red Cell Distribution Width 14.1 % (12.1-15.1); White Blood Count 6.7 10^3/uL (4.0-10.0)
[2020-07-14 01:11] LABS: INR 0.92 (0.8-1.2)
[2020-07-14 01:19] LABS: Troponin(5th) Baseline 12 ng/L (0-15)
[2020-07-14 01:27] LABS: Alanine Aminotransferase 17 U/L (0-41); Albumin Level 4.5 g/dL (3.5-5.2); Alkaline Phosphatase 68 IU/L (40-130); Anion Gap 13.3 (5-19); Aspartate Amino Transferase 20 U/L (0-40); Blood Urea Nitrogen 21 mg/dL (8-23); Calcium 9.5 mg/dL (8.5-10.5); Carbon Dioxide 32 mmol/L (22-29); Chloride 101 mmol/L (98-107); Globulin 2.1 g/dL (1.3-4.6); Glucose 127 mg/dL (65-115); NT Pro B Type Natriuretic Pept 27 pg/mL (0-450); Osmolality Calculated 299 mOsm/kg (285-295); Potassium 4.3 mmol/L (3.5-5.1); Sodium 142 mmol/L (136-145); Total Bilirubin 0.3 mg/dL (0.15-1.2); Total Protein 6.6 g/dL (6.6-8.7)
[2020-07-14 01:51] LABS: D Dimer 0.88 ug/mIFEU (0-0.59)
[2020-07-14 01:54] VITALS: BP 171/70; PULSE 88; RESP 16; O2SAT 94
--- NOTE | 2020-07-14 02:01 | CTR_ITS ---
PROCEDURE INFORMATION: Exam: CTA Chest With Contrast Exam date and time: 07/14/2020 2:09 AM Age: 75 years old Clinical indication: Pain; Shortness of breath; Chest pressure; Patient HX: Chest discomfort with SOB. Ankle fixation on 06/17/2020. Exam repeated. Best run submitted. TECHNIQUE: Imaging protocol: Computed tomographic angiography of the chest with contrast. 3D rendering (Not supervised by radiologist): MIP and/or 3D reconstructed images were created by the technologist. Radiation optimization: All CT scans at this facility use at least one of these dose optimization techniques: automated exposure control; mA and/or kV adjustment per patient size (includes targeted exams where dose is matched to clinical indication); or iterative reconstruction. Contrast material: OMNI 350; Contrast volume: 125 ml; Contrast route: INTRAVENOUS (IV); COMPARISON: CT angio chest abdomen pelvis 03/12/2020 10:42 PM RADIATION DOSE METRICS: Total DLP (mGy-cm): 1815.02 FINDINGS: Pulmonary arteries: No pulmonary embolism. Aorta: 4.2 x 4.4 cm ascending aortic aneurysm. No dissection. Lungs: Unremarkable. No consolidation. No masses. Pleural spaces: Unremarkable. No pneumothorax. No pleural effusion. Heart: Unremarkable. No cardiomegaly. No pericardial effusion. Lymph nodes: Unremarkable. No enlarged lymph nodes. 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 Soft tissues: Unremarkable. CT/CT angio chest PE protcl [id number] IMPRESSION: 1. No pulmonary embolism. 2. 4.2 x 4.4 cm ascending aortic aneurysm. No dissection. 3. 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 Radiation Dose CTDIVOL = (mGy): DLP = 1815.02 (mGy-cm)
[2020-07-14] MEDS: iohexol 350 mg/mL 100 mL Btl IV ×2 (02:18→02:23)
--- NOTE | 2020-07-14 02:43 | ECG_ITS ---
[facility] Test Date: 2020-07-14 Pat Name: Markos Najera Department: Room: Gender: Male Curbing Stonecutter: : 1945 Requested By: Jay Noble Order Number: [id number] Zoltan MD: Geremias Castelan M.D. Measurements Intervals [place] Rate: 70 P: 46 IA: 211 QRS: -65 QRSD: 128 T: 57 QT: 391 QTc: 424 Interpretive Statements SINUS RHYTHM WITH FIRST DEGREE AV BLOCK RIGHT BUNDLE BRANCH BLOCK [120+ ms QRS DURATION, UPRIGHT V1, 40+ ms S IN I/aVL/V4/V5/V6] LEFT ANTERIOR FASCICULAR BLOCK [QRS AXIS <= -45, QR IN I, RS IN II] INFERIOR MYOCARDIAL INFARCTION , PROBABLY OLD [40+ ms Q WAVE AND/OR ST/T ABNORMALITY IN II/aVF] Compared to ECG 07/14/2020 00:46:40 Myocardial infarct finding now present Electronically Signed On 07-15-2020 19:02:57 CDT by Geremias Castlean M.D. [email or web address]
[2020-07-14 02:50] VITALS: BP 152/68; PULSE 66; RESP 18; O2SAT 94
[2020-07-14 03:10] LABS: Troponin 5 2HR 10.81 ng/L (0-15)
[2020-07-14 03:14] LABS: Troponin 5 2HR Delta -1.19 ABS# (0-10)
[2020-07-14 03:26] VITALS: BP 152/68; PULSE 88; RESP 18; O2SAT 99
== END 2020-07-14 03:27 | disposition home or self-care (01) ==
PROVIDERS: Emergency Provider Emergency Medicine; PCP Registered Nurse
DX: R07.9 Chest pain, unspecified (principal); Z79.82 Long term (current) use of aspirin; Z79.02 Long term (current) use of antithrombotics/antiplatelets; E78.5 Hyperlipidemia, unspecified; I10 Essential (primary) hypertension; Z87.891 Personal history of nicotine dependence
CPT/HCPCS: 36415; 71045; 71275; 73610; 80053; 83880; 84484; 85025; 85378; 85610; 93005; 99283; Q9967

== ENCOUNTER → 2020-08-17 13:13 | Outpatient (BNVA) | payer OTHER, MEDICARE, SELFPAY | PROVIDERS: PCP Registered Nurse; Visit Provider Orthopaedic Surgery | DX: S82.62XD Displaced fracture of lateral malleolus of left fibula, subsequent encounter for closed fracture with routine healing (principal); V28.0XXD Motorcycle driver injured in noncollision transport accident in nontraffic accident, subsequent encounter | CPT/HCPCS: 73610 ==

== ENCOUNTER → 2021-01-27 13:57 | Outpatient (BNVA) | payer MEDICARE, OTHER, SELFPAY | PROVIDERS: PCP Registered Nurse; Visit Provider Registered Nurse | DX: Z20.822 Contact with and (suspected) exposure to COVID-19 (principal) | CPT/HCPCS: 87635 ==

== ENCOUNTER → 2021-06-01 15:02 | Outpatient (BNVA) | payer MEDICARE, OTHER, SELFPAY | PROVIDERS: PCP Registered Nurse; Visit Provider Nurse Practitioner Family | DX: I25.10 Atherosclerotic heart disease of native coronary artery without angina pectoris (principal); Z95.2 Presence of prosthetic heart valve; I10 Essential (primary) hypertension | CPT/HCPCS: 99214 ==

== ENCOUNTER 2021-09-19 09:52 | Outpatient (CLI) | payer MEDICARE, SELFPAY ==
--- NOTE | 2021-09-19 10:22 | USCV_ITS ---
Markos Najera Age: 76 Gender: M : 1945 Exam Date: 09/19/2021 10:44 Ordering Phys: Reinaldo Mckeon Technologist: DOLORES Exam Location: [facility] – [place] Indication: s/p aov replacement - Bovine 26 mm done 11/08/20. BP: 142 / 62 HR: 59 Rhythm: Sinus Technical Quality: adequate MEASUREMENTS (Male / Female) Normal Values 2D ECHO LV Diastolic Diameter PLAX 4.1 cm 4.2 - 5.9 / 3.9 - 5.3 cm LV Systolic Diameter PLAX 3.5 cm IVS Diastolic Thickness 1.5 cm 0.6 - 1.0 / 0.6 - 0.9 cm IVS Systolic Thickness 1.6 cm LVPW Diastolic Thickness 1.8 cm 0.6 - 1.0 / 0.6 - 0.9 cm LVPW Systolic Thickness 1.4 cm LVOT Diameter 2.6 cm LV Ejection Fraction 2D Teich 31.0 % LV Ejection Fraction MOD 2C 52.9 % LV Ejection Fraction 2C AL 52.9 % LA Diameter 3.4 cm RA Width 2.1 cm RA Height 5.7 cm Aorta at Sinotubular Diameter 2.9 cm M-MODE MV E Point Septal Separation 0.6 cm DOPPLER AV Peak Velocity 270.0 cm/s LVOT Peak Velocity 138.0 cm/s AV Area Cont Eq vti 3.3 cm squared AV Area Cont Eq pk 2.7 cm squared MV Area PHT 2.5 cm squared Mitral E to A Ratio 0.9 MV E' Velocity 45.0 cm/s Mitral E to MV E' Ratio 10.7 Mitral E to LV E' Lateral Ratio 10.3 Mitral E to LV E' Septal Ratio 11.1 TR Peak Velocity 253.3 cm/s TR Peak Gradient 25.7 mmHg Right Atrial Pressure 5.0 mmHg Pulmonary Artery Systolic Pressu 30.7 mmHg PV Peak Velocity 93.0 cm/s FINDINGS Left Ventricle Left ventricle is normal size. LV systolic function is normal with EF of 50 to 55%. No regional wall motion abnormalities are seen. Grade 1 diastolic dysfunction Right Ventricle Normal in size and function Right Atrium Normal in size Left Atrium Normal in size Mitral Valve Grossly normal. Mild mitral regurgitation Aortic Valve Possible bioprosthetic aortic valve. Not well visualized. Normally functioning. Mildly elevated gradient across the Valve of 14 mmHg. DVI is normal at 0.62. Tricuspid Valve Trace pulmonic regurgitation. Insufficient TR jet to calculate RVSP. Pulmonic Valve Trace pulmonic regurgitation Pericardium Normal Aorta Normal in size IVC CONCLUSIONS LV systolic function normal with EF of 50 to 55%. Grade 1 diastolic dysfunction. Mild mitral regurgitation. Possible bioprosthetic aortic valve. It is not well visualized. Normally functioning. Mildly elevated gradient across the valve of 14 mmHg. DVI is normal at 0.62. Compared to prior echocardiogram from 2019, patient now has bioprosthetic aortic valve. It is normally functioning. Geremias Castelan MD (Electronically Signed) Final Date: 24 September 2021 13:24 S
== END 2021-09-19 09:53 | disposition home or self-care (01) ==
PROVIDERS: PCP Registered Nurse; Visit Provider Internal Medicine
DX: Z95.2 Presence of prosthetic heart valve (principal); I34.0 Nonrheumatic mitral (valve) insufficiency
CPT/HCPCS: 93306

== ENCOUNTER 2021-10-22 12:09 | Emergency (ER) | payer MEDICARE, SELFPAY ==
[2021-10-22 12:28] VITALS: BP 145/79; PULSE 57; RESP 16; TEMP 36.7; O2SAT 95; BMI 31.3
--- NOTE | 2021-10-22 12:56 | ED_ITS ---
HPI - General Adult General: Chief complaint: Eye Problems Stated complaint: left eye is red Time Seen by Provider: 10/22/21 12:50 History of Present Illness: Patient is a 76-year-old male with history of hypertension, aortic stenosis CAD who presents emergency with complaints of left eye pain. Patient tells me yesterday night he was taking a shower suddenly felt like there is a foreign object sensation in the left eye. Patient denies any vision change but reports pain in the lower eyelid with closing of the eyelids. Patient denies any diplopia, focal weakness in the arms or legs, amaurosis fugax, drainage or redness in the eye. Patient wanted to get that checked after of note, on Sunday, patient was working with a jigsaw wearing glasses. Patient denies any foreign objects in the eye at that time. Onset:yesterday Duration:ongoing Location:home Severity:mild/moderate Associated symptoms: Deny chest pain, dyspnea, nausea, rash, palpitations or vomiting Review of Systems Const: Denies: fever(s) or chills Eyes: Reports: other (+L eye pain); Denies: change in vision ENMT: Denies: mouth pain Card: Denies: chest pain or palpitations Resp: Denies: dyspnea or non-productive cough GI: Denies: abdominal pain, nausea, vomiting or diarrhea : Denies: dysuria Musc: Denies: extremity pain Skin/Breast: Denies: rash or new lesions Neuro: Denies: weakness in extremities Psych: Reports: other (Normal mood) Carl/Lymph: Denies: easy bruising PFSH ED PFSH: Medical History Aortic stenosis, severe Arthritis of right hip Arthritis of right knee CAD (coronary artery disease) Hyperlipidemia Hypertension Lumbar degenerative disc disease Osteoarthritis of right glenohumeral joint Shortness of breath Surgical History History of aortic valve replacement 11/08/2020 at [facility] Family History Denies family history of Diabetes CAD (coronary artery disease) Clotting disorder Dementia Hyperlipidemia Psychiatric illness Chronic kidney disease (CKD) Suicide Anesthesia complication Bleeding disorder Family history of premature coronary artery disease Lung disease Cancer Hypertension Stroke Social History Alcohol intake: former Physical Exam Const: COMMON NORMALS: alert HENMT: COMMON NORMALS: atraumatic HEAD & SCALP: atraumatic MOUTH: moist mucous membranes not abnormal Eye: COMMON NORMALS: EOMs intact bilaterally and conjunctivae normal CONJUNCTIVA: Yes conjunctivae normal OTHER: + No foreign object or eversion of the eyelids, no conjunctival injection, no visible corneal abrasion or clouding, vision 20 out of 70 in both eyes, no proptosis Neck/C-Spine: COMMON NORMALS: full ROM and supple Resp: COMMON NORMALS: normal respiratory effort and clear to auscultation bilaterally AUSCULTATION: clear to auscultation bilaterally Cardio: COMMON NORMALS: regular rate RATE: regular rate GI: COMMON NORMALS: Soft to palpation and non-tender PALPATION: Yes Soft to palpation Extremity: COMMON NORMALS: full ROM Neuro: SENSORIUM/ORIENTATION: Yes alert MOTOR EXAM: No Abnormal motor strength present and Other motor observations present (no focal motor deficits) Psych: COMMON NORMALS: speech normal SPEECH: Yes normal speech MOOD & AFFECT: Yes euthymic mood Course Vital Signs: Vital signs: Vital Signs Temperature 98.1 F 10/22/21 12:28 Pulse Rate 57 L 10/22/21 12:28 Respiratory Rate 16 10/22/21 12:28 Blood Pressure 145/79 10/22/21 12:28 Pulse Oximetry 95 10/22/21 12:28 Oxygen Delivery Me thod 10/22/21 12:28 MDM - General Adult Medical Decision Making Patient is a 76-year-old male with history of hypertension, aortic stenosis CAD who presents emergency with complaints of left eye pain. He had a 70 for both eyes which patient claims is his baseline. Patient has no left eye injection or drainage. Eversion of the eyelid did not show any signs of foreign objects. I discussed case with Dr. Epifanio New who recommended close follow-up and reevaluation on Sunday in clinic. Patient does not wear contact lenses. He is given strict return if any signs of eye blindness, drainage, severe pain, or any new concerning complaints. Rx ciprofloxacin eye drops and erythromycin eye ointment Disposition: Discharge. Patient counseled regarding diagnostic impression, treatment plan. Patient given ED strict return precautions to return for continuation, worsening, or development of new symptoms. Instructed to f/u w/ PCP regarding symptoms today. Patient verbalized understanding. Discharge Plan Discharge Patient Disposition: Home Clinical Impression: Acute eye pain, Abrasion, corneal Condition: Stable Prescriptions: New moxifloxacin 0.5 % drops, viscous 1 drp ophthalmic (eye) BID 7 Days Qty: 3 0RF erythromycin 5 mg/gram (0.5 %) ointment 1 applic ophthalmic (eye) BID 3 Days Qty: 50 0RF No Action aspirin 81 mg tablet,delayed release (DR/EC) 81 mg PO QAM acetaminophen 325 mg capsule 325 mg PO QID PRN sennosides-docusate sodium [Colace 2-In-1] 8.6-50 mg tablet 1 tab-cap PO BID 30 Days Qty: 60 0RF prednisone 20 mg tablet 20 mg PO BID 5 Days Qty: 10 0RF amlodipine 10 mg tablet 10 mg PO DAILY Qty: 90 3RF clopidogrel 75 mg tablet 75 mg PO DAILY Qty: 90 3RF clobetasol 0.05 % ointment 1 applic topical DAILY Qty: 15 0RF baclofen 10 mg tablet See Rx Instructions .ROUTE .COMPLEX Qty: 90 0RF Dose Instruction: TAKE 1 TABLET BY MOUTH THREE TIMES DAILY FOR 30 DAYS Rx Instructions: TAKE 1 TABLET BY MOUTH THREE TIMES DAILY FOR 30 DAYS pantoprazole 40 mg tablet,delayed release (DR/EC) 40 mg PO DAILY Qty: 90 3RF atorvastatin 40 mg tablet 40 mg PO DAILY Qty: 90 3RF losartan 50 mg tablet 50 mg PO DAILY Qty: 90 0RF melatonin 10 mg tablet 20 mg PO BEDTIME ascorbic acid (vitamin C) [Vitamin C With Charlotte Hips] 1,000 mg Tablet 1,000 mg PO QAM loratadine [Claritin] 10 mg Tablet 10 mg PO QAM Multivitamin 50 Plus Tablet 1 tab PO QAM Cod Liver Oil plus Fidel and D3 1,250 unit-130 unit-530 mg Capsule 1 cap PO BEDTIME magnesium oxide 400 mg magnesium Tablet 400 mg PO BEDTIME Glucosamine Chondroitin 550-30-1 mg Capsule 1 cap PO BID Discharge Orders: Discharge ED (Routine); Ordered 10/22/21 Ordered By: Javier Kidd Referrals: Micah Beaulieu, NATURAL GAS BASIS TRADER [Primary Care Provider] - Discharge Diet: Advance as tolerated Discharge Activity: Increase activity as tolerated Patient Instructions: Eye Pain (ED) Activity Restrictions/Additional Instructions: Our pillowcase cleaner will have you follow-up with Opthalmology in the next few days for eye pain. You would be expected to have a phone call with our pillowcase cleaner who will put you on the schedule. You can expect a call from us in the next 2-3 days. If you don't hear from us, call us back in the emergency room at [phone]. Please follow up with [facility] on Sunday: [address] , [place], [place] [id number] Coding Level of Care Code ED Collar Shaper Operator for Chg Fwd Exam Comprehensive
--- NOTE | 2021-10-24 13:21 | DCPLANNER ---
Addendum entered by Tayla Gilmore 10/27/21 11:31: Patient had a follow up appointment scheduled with Dr. New - patient did attend appointment. Original Note: resident care manager rn had message to schedule a follow up appointment for patient with Dr. New. resident care manager rn faxed patients information to the office of Dr. New. Patients information will be reviewed, clinic will call patient with appointment information.
== END 2021-10-22 13:46 | disposition home or self-care (01) ==
PROVIDERS: Emergency Provider Emergency Medicine; PCP Registered Nurse
DX: S05.02XA Injury of conjunctiva and corneal abrasion without foreign body, left eye, initial encounter (principal); X58.XXXA Exposure to other specified factors, initial encounter; Z79.82 Long term (current) use of aspirin; Z79.02 Long term (current) use of antithrombotics/antiplatelets; I25.10 Atherosclerotic heart disease of native coronary artery without angina pectoris; E78.5 Hyperlipidemia, unspecified; I10 Essential (primary) hypertension
CPT/HCPCS: 99283

== ENCOUNTER → 2021-11-23 11:23 | Outpatient (BNVA) | payer MEDICARE, SELFPAY | PROVIDERS: PCP Registered Nurse; Visit Provider Internal Medicine Cardiovascular Disease | DX: I25.10 Atherosclerotic heart disease of native coronary artery without angina pectoris (principal); Z95.3 Presence of xenogenic heart valve; E78.5 Hyperlipidemia, unspecified; I10 Essential (primary) hypertension; Z87.891 Personal history of nicotine dependence | CPT/HCPCS: 99214 ==

== ENCOUNTER → 2022-01-11 14:01 | Outpatient (BNVA) | payer MEDICARE, SELFPAY | PROVIDERS: PCP Registered Nurse; Referring Provider Registered Nurse; Visit Provider Orthopaedic Surgery | DX: M19.011 Primary osteoarthritis, right shoulder (principal) | CPT/HCPCS: 20610; 73030; 99203; J3301; J3490 ==

== ENCOUNTER → 2022-06-01 09:42 | Outpatient (BNVA) | payer MEDICARE, SELFPAY | PROVIDERS: PCP Registered Nurse; Visit Provider Internal Medicine Cardiovascular Disease | DX: I25.10 Atherosclerotic heart disease of native coronary artery without angina pectoris (principal); E78.5 Hyperlipidemia, unspecified; Z95.3 Presence of xenogenic heart valve; R06.02 Shortness of breath; I10 Essential (primary) hypertension; Z86.73 Personal history of transient ischemic attack (TIA), and cerebral infarction without residual deficits; Z87.891 Personal history of nicotine dependence; Z79.82 Long term (current) use of aspirin | CPT/HCPCS: 99214 ==

== ENCOUNTER → 2022-06-15 08:07 | Outpatient (BNVA) | payer MEDICARE, SELFPAY | PROVIDERS: PCP Registered Nurse; Visit Provider Internal Medicine Cardiovascular Disease | DX: E78.5 Hyperlipidemia, unspecified (principal) | CPT/HCPCS: 80061; 80076 ==

== ENCOUNTER 2022-07-24 00:29 | Emergency (ER) | payer MEDICARE, SELFPAY ==
[2022-07-24 00:36] VITALS: BP 187/54; PULSE 79; RESP 16; TEMP 36.5; O2SAT 96; BMI 31.3
[2022-07-24 00:41] VITALS: BP 167/79; PULSE 72; RESP 18; O2SAT 96
--- NOTE | 2022-07-24 00:50 | W.ED.EPISTAX ---
HPI - Epistaxis General: Chief complaint: Epistaxis Stated complaint: nose bleed * started around 20:00 Time Seen by Provider: 07/24/22 00:48 History of Present Illness: 77-year-old male patient comes in today for complaints of left naris nosebleed. Patient reports nose started bleeding about 8:00 this evening. Patient appears nontoxic. Patient appears no acute distress. Patient reports he has a lesion in his nose on the left side that he believes causes his bleeding. Patient also takes routinely aspirin and Plavix. Patient also takes medication for high blood pressure. Associated symptoms: Deny vomiting Review of Systems General: Reports: 10 or more systems reviewed and unremarkable except in HPI and below ENMT: Reports: epistaxis Card: Denies: chest pain Resp: Denies: dyspnea GI: Denies: nausea or vomiting : Denies: difficulty urinating Musc: Denies: neck pain or back pain Skin/Breast: Denies: rash Neuro: Denies: numbness in extremities Psych: Denies: anxiety Carl/Lymph: Denies: easy bruising or easy bleeding PFS ED PFSH: Medical History (Updated 07/24/22 @ 01:50 by SANJAY Roberts) Actinic keratosis Aortic stenosis, severe Arthritis of right hip Arthritis of right knee Bilateral carotid bruits CAD (coronary artery disease) CVA (cerebral vascular accident) Hyperlipidemia Hypertension Lumbar degenerative disc disease Osteoarthritis of right glenohumeral joint Shortness of breath Splenic neoplasm Surgical History (Updated 07/18/22 @ 13:59 by Karime Vail LPN) History of aortic valve replacement 11/08/[address] [facility] Hx of appendectomy Hx of heart artery stent Family History Mother Cancer Father Diabetes Denies family history of CAD (coronary artery disease) Clotting disorder Dementia Hyperlipidemia Psychiatric illness Chronic kidney disease (CKD) Suicide Anesthesia complication Bleeding disorder Family history of premature coronary artery disease Lung disease Hypertension Stroke Social History Smoking and tobacco status: former smoker Alcohol intake: former Substance/Drug Use: never Adopted: No Caregiver/support person: No Lives independently: No Household members: spouse Marital status: service: No Current occupational status: retired Sexually active: Yes Do you think of yourself as: Straight/Heterosexual Current gender identity: Male and Female Physical Exam Const: COMMON NORMALS: alert HENMT: HEAD & SCALP: normal to inspection NOSE: Epistaxis present on the left Neck/C-Spine: COMMON NORMALS: full ROM Resp: COMMON NORMALS: normal respiratory effort and clear to auscultation bilaterally AUSCULTATION: clear to auscultation bilaterally Cardio: COMMON NORMALS: regular rate and regular rhythm RATE: regular rate RHYTHM: regular rhythm Extremity: COMMON NORMALS: normal to inspection Neuro: SENSORIUM/ORIENTATION: Yes alert Psych: COMMON NORMALS: mental status grossly normal Skin: COMMON NORMALS: turgor normal GENERAL SKIN EXAM: turgor normal Procedures Epistaxis Control Nostril: left Nose Prepped With: oxymetazoline Direct Inspection: yes and anterior source identified Clots Removed by: manually Cautery Used: none Patient Tolerated Procedure: well Course Vital Signs: Vital signs: Vital Signs Temperature 97.7 F 07/24/22 00:36 Pulse Rate 69 07/24/22 01:37 Respiratory Rate 18 07/24/22 01:37 Blood Pressure 153/93 07/24/22 01:37 Pulse Oximetry 95 07/24/22 01:37 Oxygen Delivery Me thod Room Air 07/24/22 01:37 MDM - Epistaxis Medical Decision Making 77-year-old male patient comes in today with nosebleed. Patient has been having a nosebleed since 8:00 this evening. Patient denies any injury. 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 Differential diagnoses includes allergic rhinitis, carcinoma, nasal polyp, epistaxis idiopathic. Bleeding was brought under control with Afrin and pressure. After 30 minutes of pressure patient was evaluated and no further bleeding was noted. Attempted to place Merocel sponge but met resistance in the nasal passages. Patient did not want to have balloon device at this time. No further bleeding was noted after 30 minutes more of observation. Patient was instructed to use Afrin 2 sprays each nostril 3 times a day for the next 3 days. Recommend return to the ER for increased bleeding. Patient reported understanding and agreed to plan. Lab Data 07/24/22 00:58 07/24/22 00:58 Laboratory Results WBC 7.8 10^3/uL (4.0-10.0) 07/24/22 00:58 RBC 4.78 10^6/uL (4.1-5.3) 07/24/22 00:58 Hgb 13.6 g/dL (11.7-16.6) 07/24/22 00:58 Hct 43.7 % (42.0-52.0) 07/24/22 00:58 MCV 91.4 fl (80-94) 07/24/22 00:58 MCH 28.5 pg (28.0-34.0) 07/24/22 00:58 MCHC 31.1 g/dL (30.0-36.0) 07/24/22 00:58 RDW 13.0 % (12.1-15.1) 07/24/22 00:58 Plt Count 202 10^3/cmm (130-400) 07/24/22 00:58 MPV 10.5 fL (7.4-10.4) H 07/24/22 00:58 Neut % (Auto) 51.6 % 07/24/22 00:58 Lymph % (Auto) 36.7 % 07/24/22 00:58 Finney % (Auto) 8.6 % 07/24/22 00:58 Eos % (Auto) 2.3 % 07/24/22 00:58 Baso % (Auto) 0.5 % 07/24/22 00:58 Neut # (Auto) 4.01 10^3/uL (1.8-7.7) 07/24/22 00:58 Lymph # (Auto) 2.9 10^3/uL (0.8-4.8) 07/24/22 00:58 Finney # (Auto) 0.7 10^3/uL (0.2-0.9) 07/24/22 00:58 Eos # (Auto) 0.2 10^3/uL (0.0-0.8) 07/24/22 00:58 Baso # (Auto) 0.0 10^3/uL (0.0-0.1) 07/24/22 00:58 Nucleated RBC % (auto) 0 % 07/24/22 00:58 Nucleated RBCs # 0.0 /100WBC 07/24/22 00:58 Sodium 140 mmol/L (136-145) 07/24/22 00:58 Potassium 4.3 mmol/L (3.5-5.1) 07/24/22 00:58 Chloride 102 mmol/L (98-107) 07/24/22 00:58 Carbon Dioxide 28 mmol/L (22-29) 07/24/22 00:58 Anion Gap 14.3 (5-19) 07/24/22 00:58 BUN 19 mg/dL (8-23) 07/24/22 00:58 Creatinine 0.9 mg/dL (0.7-1.2) 07/24/22 00:58 GFR Calculation Not Reportable 07/24/22 00:58 Glucose 106 mg/dL (65-115) 07/24/22 00:58 Calculated Osmolality 293 mOsm/kg (285-295) 07/24/22 00:58 Calcium 9.5 mg/dL (8.5-10.5) 07/24/22 00:58 Total Bilirubin 0.3 mg/dL (0.15-1.2) 07/24/22 00:58 AST 26 U/L (0-40) 07/24/22 00:58 ALT 26 U/L (0-41) 07/24/22 00:58 Alkaline Phosphatase 75 U/L (40-130) 07/24/22 00:58 Total Protein 7.3 g/dL (6.6-8.7) 07/24/22 00:58 Albumin 4.4 g/dL (3.5-5.2) 07/24/22 00:58 Globulin 2.9 g/dL (1.3-4.6) 07/24/22 00:58 Discharge Plan Discharge Patient Disposition: Home Clinical Impression: Epistaxis Condition: Stable Prescriptions: No Action aspirin 81 mg tablet,delayed release (DR/EC) 81 mg PO QAM acetaminophen 325 mg capsule 325 mg PO QID PRN cholecalciferol (vitamin D3) 25 mcg (1,000 unit) capsule 25 mcg PO DAILY albuterol sulfate [Ventolin HFA] 90 mcg/actuation HFA aerosol inhaler 1 inh inhalation QID PRN (Reason: shortness of breath or wheezing) Qty: 8.5 0RF amitriptyline 10 mg tablet 10 mg PO DAILY 30 Days Qty: 30 0RF pantoprazole 40 mg tablet,delayed release (DR/EC) 40 mg PO DAILY Qty: 90 3RF atorvastatin 40 mg tablet 40 mg PO DAILY Qty: 90 3RF clopidogrel 75 mg tablet 75 mg PO DAILY Qty: 90 3RF losartan 50 mg tablet See Rx Instructions .ROUTE .COMPLEX Qty: 90 3RF Dose Instruction: Take 1 tablet by mouth once daily Rx Instructions: Take 1 tablet by mouth once daily amlodipine 10 mg tablet 10 mg PO DAILY Qty: 90 3RF melatonin 10 mg tablet 20 mg PO BEDTIME ascorbic acid (vitamin C) [Vitamin C With Charlotte Hips] 1,000 mg Tablet 1,000 mg PO QAM Multivitamin 50 Plus Tablet 1 tab PO QAM magnesium oxide 400 mg magnesium Tablet 400 mg PO BEDTIME Glucosamine Chondroitin 550-30-1 mg Capsule 1 cap PO BID Discharge Orders: Discharge ED (Routine); Ordered 07/24/22 Ordered By: Cachorro Sherwood Referrals: Micah Beaulieu FNP [Primary Care Provider] - Discharge Diet: Usual diet Discharge Activity: Increase activity as tolerated Patient Instructions: Nosebleed (ED) Activity Restrictions/Additional Instructions: Home and rest. Use nasal decongestant spray 2 sprays each nostril 3 times daily for the next 3 days. Follow-up with ENT for further evaluation and treatment. Return to ER for new concerns or worsening symptoms. Coding Level of Care Code ED Registered Nurses for Jose David Garibay
[2022-07-24] MEDS: oxymetazoline 0.05% Nasal Spray 15 mL 2 SPRAY NOSTRIL-B (00:56)
[2022-07-24 01:06] LABS: Basophils % 0.5 %; Eosinophils # 0.2 10^3/uL (0.0-0.8); Eosinophils % 2.3 %; Hematocrit 43.7 % (42.0-52.0); Hemoglobin 13.6 g/dL (11.7-16.6); Lymphocytes # 2.9 10^3/uL (0.8-4.8); Lymphocytes % 36.7 %; Mean Corpuscular HGB Conc 31.1 g/dL (30.0-36.0); Mean Corpuscular Hemoglobin 28.5 pg (28.0-34.0); Mean Corpuscular Volume 91.4 fl (80-94); Mean Platelet Volume 10.5 fL (7.4-10.4); Monocytes # 0.7 10^3/uL (0.2-0.9); Monocytes % 8.6 %; Neutrophils # 4.01 10^3/uL (1.8-7.7); Neutrophils % 51.6 %; Nucleated Red Blood Cells % 0 %; Platelet Count 202 10^3/cmm (130-400); Red Blood Count 4.78 10^6/uL (4.1-5.3); White Blood Count 7.8 10^3/uL (4.0-10.0)
[2022-07-24 01:24] LABS: Alanine Aminotransferase 26 U/L (0-41); Albumin Level 4.4 g/dL (3.5-5.2); Alkaline Phosphatase 75 U/L (40-130); Anion Gap 14.3 (5-19); Aspartate Amino Transferase 26 U/L (0-40); Blood Urea Nitrogen 19 mg/dL (8-23); Calcium 9.5 mg/dL (8.5-10.5); Carbon Dioxide 28 mmol/L (22-29); Chloride 102 mmol/L (98-107); Creatinine Clr Calc Pharmacy 72.6655; Globulin 2.9 g/dL (1.3-4.6); Glucose 106 mg/dL (65-115); Osmolality Calculated 293 mOsm/kg (285-295); Potassium 4.3 mmol/L (3.5-5.1); Sodium 140 mmol/L (136-145); Total Bilirubin 0.3 mg/dL (0.15-1.2); Total Protein 7.3 g/dL (6.6-8.7)
[2022-07-24 01:37] VITALS: BP 153/93; PULSE 69; RESP 18; O2SAT 95
[2022-07-24] MEDS: bacitracin ointment Pkt 1 EACH TOPICAL (01:37)
[2022-07-24 02:01] VITALS: BP 140/72; PULSE 66; RESP 18; O2SAT 93
--- NOTE | 2022-07-24 10:00 | DCPLANNER ---
Addendum entered by Tayla Gilmore 07/27/22 11:23: network program manager received the following message from the ENT clinic regarding follow up appointment: pt states he no longer is needing this and will call if he is needing to be seen Original Note: network program manager had message to schedule a follow up appointment for patient with ENT. network program manager sent patients to the front office staff at ENT. Patients information will be printed and reviewed. Clinic will call patient with appointment information.
== END 2022-07-24 02:04 | disposition home or self-care (01) ==
PROVIDERS: Emergency Provider Nurse Practitioner Family; PCP Registered Nurse
DX: R04.0 Epistaxis (principal); Z79.82 Long term (current) use of aspirin; Z79.02 Long term (current) use of antithrombotics/antiplatelets; I25.10 Atherosclerotic heart disease of native coronary artery without angina pectoris; Z86.73 Personal history of transient ischemic attack (TIA), and cerebral infarction without residual deficits; E78.5 Hyperlipidemia, unspecified; I10 Essential (primary) hypertension; Z87.891 Personal history of nicotine dependence
CPT/HCPCS: 30901; 80053; 85025; 99283

== ENCOUNTER → 2022-07-25 15:32 | Outpatient (BNVA) | payer MEDICARE, SELFPAY | PROVIDERS: PCP Registered Nurse; Referring Provider Registered Nurse; Visit Provider Nurse Practitioner Family | DX: M17.12 Unilateral primary osteoarthritis, left knee (principal) | CPT/HCPCS: 20610; 73560; 73562; 73565; 99213; J1100; J2795; J3301 ==

== ENCOUNTER → 2022-10-31 10:25 | Outpatient (BNVA) | payer MEDICARE, SELFPAY | PROVIDERS: PCP Registered Nurse; Visit Provider Registered Nurse | DX: J02.9 Acute pharyngitis, unspecified (principal); Z20.822 Contact with and (suspected) exposure to COVID-19 | CPT/HCPCS: 87426 ==

== ENCOUNTER → 2022-12-20 15:09 | Outpatient (BNVA) | payer MEDICARE, SELFPAY | PROVIDERS: PCP Registered Nurse; Visit Provider Internal Medicine Cardiovascular Disease | DX: I25.10 Atherosclerotic heart disease of native coronary artery without angina pectoris (principal); Z95.3 Presence of xenogenic heart valve; R06.02 Shortness of breath; E78.5 Hyperlipidemia, unspecified; Z86.73 Personal history of transient ischemic attack (TIA), and cerebral infarction without residual deficits; I10 Essential (primary) hypertension; Z87.891 Personal history of nicotine dependence | CPT/HCPCS: 99214 ==

== ENCOUNTER 2022-12-28 13:50 | Outpatient (CLI) | payer MEDICARE, SELFPAY ==
--- NOTE | 2022-12-28 14:30 | USCV_ITS ---
Markos Najera Age: 77 Gender: M : 1945 Exam Date: 12/28/2022 14:13 Ordering Phys: Cici Garcia MD ([email or web address]) Technologist: Exam Location: [facility] [place] Indication: cva BP: 135 / 78 HR: 66 Rhythm: Sinus Technical Quality: Suboptimal MEASUREMENTS (Male / Female) Normal Values 2D ECHO LV Diastolic Diameter PLAX 3.5 cm 4.2 - 5.9 / 3.9 - 5.3 cm LV Systolic Diameter PLAX 2.4 cm IVS Diastolic Thickness 1.6 cm 0.6 - 1.0 / 0.6 - 0.9 cm IVS Systolic Thickness 1.4 cm LVPW Diastolic Thickness 1.5 cm 0.6 - 1.0 / 0.6 - 0.9 cm LVPW Systolic Thickness 1.3 cm LVOT Diameter 2.1 cm LV Ejection Fraction 2D Teich 63.0 % LV Ejection Fraction MOD 2C 79.0 % LV Ejection Fraction 2C AL 80.0 % LA Diameter 4.1 cm IVC Diameter 1.9 cm M-MODE Aortic Annulus Diameter 4.2 cm LA Ao Ratio MM 1.0 MV E Point Septal Separation 1.5 cm DOPPLER AV Peak Velocity 247.0 cm/s LVOT Peak Velocity 119.0 cm/s AV Area Cont Eq vti 1.8 cm squared AV Area Cont Eq pk 1.6 cm squared MV Area PHT 3.1 cm squared Mitral E to A Ratio 0.8 MV E' Velocity 37.0 cm/s Mitral E to MV E' Ratio 8.2 Mitral E to LV E' Lateral Ratio 7.0 Mitral E to LV E' Septal Ratio 9.9 TR Peak Velocity 207.7 cm/s TR Peak Gradient 17.3 mmHg TV Peak E Velocity 106.0 cm/s Right Atrial Pressure 3.0 mmHg Pulmonary Artery Systolic Pressu 20.3 mmHg RV Acceleration Time 0.1 s FINDINGS Left Ventricle Normal left ventricular size, systolic function and wall thickness, with no regional wall motion abnormalities. Grade I/IV diastolic dysfunction (abnormal relaxation filling pattern), normal to mildly elevated filling pressures. Left ventricular ejection fraction is estimated at 60 %. Right Ventricle Normal right ventricular size and systolic function. Normal right ventricular systolic pressure. Right Atrium The right atrium is normal in size. Left Atrium The left atrium is normal in size. Mitral Valve Structurally normal mitral valve without significant stenosis or prolapse. There is no mitral regurgitation. Aortic Valve The valve may be bioprosthetic. Mild aortic valve calcification. Mild aortic valve stenosis, mean gradient 10.8 mmHg, ELAN 1.8 cm squared. No aortic valve regurgitation. Tricuspid Valve Structurally normal tricuspid valve without significant stenosis or regurgitation. Pulmonary artery systolic pressure is normal. Pulmonic Valve Pulmonic valve not well visualized. Pericardium Normal pericardium without effusion. Aorta Normal ascending aorta dimension. IVC The inferior vena cava appears normal. CONCLUSIONS Normal left ventricular size, systolic function and wall thickness, with no regional wall motion abnormalities. Grade I/IV diastolic dysfunction (abnormal relaxation filling pattern), normal to mildly elevated filling pressures. Left ventricular ejection fraction is estimated at 60 %. Possible bioprosthetic AV. Mild aortic valve calcification. Mild aortic valve stenosis, mean gradient 10.8 mmHg, ELAN 1.8 cm squared. No aortic valve regurgitation. No change from the previous study dated 09/24/2021. Dr. Zane aCllahan MD (Electronically Signed) Final Date: 28 December 2022 15:59 S
== END 2022-12-28 13:51 | disposition home or self-care (01) ==
LOC: RAD 13:50
PROVIDERS: PCP Registered Nurse; Visit Provider Internal Medicine Cardiovascular Disease
DX: R06.09 Other forms of dyspnea (principal); I51.89 Other ill-defined heart diseases; Z95.2 Presence of prosthetic heart valve; I35.8 Other nonrheumatic aortic valve disorders; I35.0 Nonrheumatic aortic (valve) stenosis
CPT/HCPCS: 93306

== ENCOUNTER 2023-02-10 17:26 | Emergency (ER) | payer MEDICARE, SELFPAY ==
--- NOTE | 2023-02-10 17:32 | XRR_ITS ---
PROCEDURE INFORMATION: Exam: XR Chest Exam date and time: 02/10/2023 8:24 PM Age: 78 years old Clinical indication: Prior surgery; Surgery date: 6+ months; Surgery type: Aortic valve. Coronary stent; Patient HX: C/O cough TECHNIQUE: Imaging protocol: Radiologic exam of the chest. Views: 1 view. COMPARISON: CT angio chest PE protcl [id number] 07/14/2020 2:15 AM FINDINGS: Lungs: No consolidation. Pleural spaces: No large pleural effusion. No pneumothorax. Heart/Mediastinum: Unremarkable cardiomediastinal silhouette. Bones/joints: No acute abnormality. Glenohumeral osteoarthritis. XR/XR chest 1V portable [id number] IMPRESSION: No acute findings.
[2023-02-10 17:40] VITALS: BP 123/64; PULSE 92; RESP 18; TEMP 36.8; O2SAT 100; BMI 31.3
[2023-02-10 19:36] LABS: SARS Covid-2 Antigen negative (Negative)
[2023-02-10 19:46] LABS: Influenza A by IFA negative (Negative); Influenza B by IFA negative (Negative)
--- NOTE | 2023-02-10 20:17 | W.ED.URI ---
HPI - URI/Sore Throat General: Chief Complaint: Upper Respiratory Infection Stated Complaint: Cough Time Seen by Provider: 02/10/23 19:17 History of Present Illness: 78-year-old male patient comes in today for complaints of cough and congestion starting 2 days ago. Patient appears nontoxic. Patient has a history of hard of hearing, CAD, inhaler use. Patient does not know any history of asthma or COPD though. Patient reports occasional cough difficulty catching breath. Associated symptoms: Deny fever(s) Review of Systems General: Reports: 10 or more systems reviewed and unremarkable except in HPI and below Const: Denies: fever(s) ENMT: Denies: throat pain Resp: Reports: dyspnea and non-productive cough PFSH ED PFSH: Medical History Actinic keratosis Aortic stenosis, severe Arthritis of right hip Arthritis of right knee Bilateral carotid bruits CAD (coronary artery disease) CVA (cerebral vascular accident) Hyperlipidemia Hypertension Lumbar degenerative disc disease Osteoarthritis of right glenohumeral joint Shortness of breath Splenic neoplasm Surgical History History of aortic valve replacement 11/08/2020 at [facility] Hx of appendectomy Hx of heart artery stent Family History Mother Cancer Father Diabetes Denies family history of CAD (coronary artery disease) Clotting disorder Dementia Hyperlipidemia Psychiatric illness Chronic kidney disease (CKD) Suicide Anesthesia complication Bleeding disorder Family history of premature coronary artery disease Lung disease Hypertension Stroke Social History Smoking and tobacco/nicotine status: former use of tobacco/nicotine Alcohol intake: former Substance/Drug Use: never Adopted: No Caregiver/support person: No Lives independently: No Household members: spouse Marital status: service: No Current occupational status: retired Sexually active: Yes Do you think of yourself as: Straight/Heterosexual Current gender identity: Male and Female Physical Exam Const: COMMON NORMALS: alert HENMT: COMMON NORMALS: normocephalic HEAD & SCALP: normocephalic THROAT: posterior oropharynx normal Neck/C-Spine: COMMON NORMALS: full ROM Resp: COMMON NORMALS: normal respiratory effort AUSCULTATION: diminished lung sounds Cardio: COMMON NORMALS: regular rate and regular rhythm RATE: regular rate RHYTHM: regular rhythm GI: COMMON NORMALS: non-tender Back/Pelvis: COMMON NORMALS: thoracic and lumbar spine normal to inspection Extremity: COMMON NORMALS: normal to inspection Neuro: SENSORIUM/ORIENTATION: Yes alert Skin: COMMON NORMALS: turgor normal GENERAL SKIN EXAM: turgor normal Course Vital Signs: Vital signs: Vital Signs Temperature 98.3 F 02/10/23 17:40 Pulse Rate 83 02/10/23 20:57 Respiratory Rate 16 02/10/23 20:49 Blood Pressure 123/64 02/10/23 17:40 Pulse Oximetry 93 02/10/23 20:49 Oxygen Delivery Me thod Room Air 02/10/23 20:49 MDM - URI/Sore Throat Medical Decision Making 78-year-old male patient comes in today for difficulty breathing. On exam patient has some decreased breath sounds. Skin is warm and dry color is pink. Vital signs are normal. Pulse oxygen is normal. Differential diagnosis includes not limited to reactive airway disease, upper respiratory infection, pneumonia, bronchitis, COPD, influenza, COVID. COVID and flu test were negative. Chest x-ray showed no significant consolidation. Reviewed exam with patient recommended treatment with albuterol inhaler 2 puffs every 4 hours as needed. Start him on prednisone and doxycycline. Patient reports understanding of care plan need for follow-up or return to the ER for worsening symptoms. Lab Data Laboratory Results Influenza Type A Ag negative (Negative) 02/10/23 19:13 Influenza Type B Ag negative (Negative) 02/10/23 19:13 SARS-CoV-2 Ag (Rapid) negative (Negative) 02/10/23 19:13 XR interpretation done by ED provider, pending radiology final review Discharge Plan Discharge Patient Disposition: Home Clinical Impression: Bronchitis Condition: Stable Prescriptions: New doxycycline hyclate 100 mg capsule 100 mg PO BID 7 Days Qty: 14 0RF prednisone 20 mg tablet 20 mg PO BID 7 Days Qty: 14 0RF No Action aspirin 81 mg tablet,delayed release (DR/EC) 81 mg PO QAM acetaminophen 325 mg capsule 325 mg PO QID PRN losartan 100 mg tablet 100 mg PO DAILY 30 Days Qty: 90 3RF cholecalciferol (vitamin D3) 25 mcg (1,000 unit) capsule 25 mcg PO DAILY clopidogrel 75 mg tablet 75 mg PO DAILY Qty: 90 3RF amlodipine 10 mg tablet 10 mg PO DAILY Qty: 90 3RF albuterol sulfate 90 mcg/actuation HFA aerosol inhaler See Rx Instructions .ROUTE .COMPLEX Qty: 18 0RF Dose Instruction: INHALE 1 PUFF BY MOUTH 4 TIMES DAILY NEEDED FOR SHORTNESS OF BREATH OR WHEEZING Rx Instructions: INHALE 1 PUFF BY MOUTH 4 TIMES DAILY NEEDED FOR SHORTNESS OF BREATH OR WHEEZING pantoprazole 40 mg tablet,delayed release (DR/EC) See Rx Instructions .ROUTE .COMPLEX Qty: 30 3RF Dose Instruction: TAKE 1 TABLET BY MOUTH ONCE DAILY. MAKE FOLLOW UP FOR FURTHER REFILLS. Rx Instructions: TAKE 1 TABLET BY MOUTH ONCE DAILY. MAKE FOLLOW UP FOR FURTHER REFILLS. levocetirizine 5 mg tablet See Rx Instructions .ROUTE .COMPLEX Qty: 30 0RF Dose Instruction: TAKE 1 TABLET BY MOUTH AT BEDTIME Rx Instructions: TAKE 1 TABLET BY MOUTH AT BEDTIME amitriptyline 10 mg tablet See Rx Instructions .ROUTE .COMPLEX Qty: 30 1RF Dose Instruction: Take 1 tablet by mouth once daily for 30 days Rx Instructions: Take 1 tablet by mouth once daily for 30 days atorvastatin 40 mg tablet See Rx Instructions .ROUTE .COMPLEX Qty: 90 3RF Dose Instruction: Take 1 tablet by mouth once daily Rx Instructions: Take 1 tablet by mouth once daily melatonin 10 mg tablet 20 mg PO BEDTIME ascorbic acid (vitamin C) [Vitamin C With Charlotte Hips] 1,000 mg Tablet 1,000 mg PO QAM Multivitamin 50 Plus Tablet 1 tab PO QAM magnesium oxide 400 mg magnesium Tablet 400 mg PO BEDTIME Glucosamine Chondroitin 550-30-1 mg Capsule 1 cap PO BID Discharge Orders: Discharge ED (Routine); Ordered 02/10/23 Ordered By: Cachorro Sherwood Referrals: Micah Beaulieu, SENIOR ELECTRICAL DESIGNER [Primary Care Provider] - Discharge Diet: Usual diet Discharge Activity: Increase activity as tolerated Patient Instructions: Acute Bronchitis (ED) Activity Restrictions/Additional Instructions: Use inhaler 2 puffs every 4 hours for cough, wheezing and shortness of breath. Drink plenty of water and fluids. Take prednisone and doxycycline as prescribed. Follow-up with primary care for further instructions. Return to ED for new concerns. Coding Level of Care Code ED Medical Records Custodian for Jose David Garibay
[2023-02-10 20:49] VITALS: PULSE 85; RESP 16; O2SAT 93
[2023-02-10] MEDS: dexamethasone 10 mg/mL INJ IM (20:51)
[2023-02-10] MEDS: ipratropium-albuterol 3 mL Neb INHALATION (20:52)
[2023-02-10] MEDS: doxycycline 100 mg Tablet PO (20:52)
[2023-02-10 20:57] VITALS: PULSE 83
[2023-02-10] MEDS: benzonatate 100 mg Capsule PO (21:26)
[2023-02-10 22:12] VITALS: PULSE 89; O2SAT 90
== END 2023-02-10 22:15 | disposition home or self-care (01) ==
PROVIDERS: Emergency Medicine; Emergency Provider Nurse Practitioner Family; PCP Registered Nurse
DX: J40 Bronchitis, not specified as acute or chronic (principal); Z79.02 Long term (current) use of antithrombotics/antiplatelets; Z79.82 Long term (current) use of aspirin; Z11.52 Encounter for screening for COVID-19; I25.10 Atherosclerotic heart disease of native coronary artery without angina pectoris; Z86.73 Personal history of transient ischemic attack (TIA), and cerebral infarction without residual deficits; E78.5 Hyperlipidemia, unspecified; I10 Essential (primary) hypertension; Z87.891 Personal history of nicotine dependence
CPT/HCPCS: 71045; 87426; 87804; 94640; 96372; 99284; J1100

== ENCOUNTER → 2023-06-27 10:47 | Outpatient (BNVA) | payer MEDICARE, SELFPAY | PROVIDERS: PCP Registered Nurse; Visit Provider Internal Medicine Cardiovascular Disease | DX: I10 Essential (primary) hypertension (principal); Z95.2 Presence of prosthetic heart valve; I25.10 Atherosclerotic heart disease of native coronary artery without angina pectoris; E78.2 Mixed hyperlipidemia; Z87.891 Personal history of nicotine dependence | CPT/HCPCS: 99214 ==

== ENCOUNTER → 2024-05-05 11:19 | Outpatient (BNVA) | payer MEDICARE, SELFPAY | PROVIDERS: PCP Registered Nurse; Visit Provider Internal Medicine Cardiovascular Disease | DX: I10 Essential (primary) hypertension (principal); Z95.2 Presence of prosthetic heart valve; I25.10 Atherosclerotic heart disease of native coronary artery without angina pectoris; E78.2 Mixed hyperlipidemia | CPT/HCPCS: 99214 ==

== ENCOUNTER 2024-06-05 12:56 | Outpatient (CLI) | payer MEDICARE, SELFPAY ==
--- NOTE | 2024-06-05 13:30 | USCV_ITS ---
Markos Najera Age: 79 Gender: M : 1945 Exam Date: 06/05/2024 13:19 Ordering Phys: Cici Garcia MD ([email or web address]) Technologist: Exam Location: [facility] [place] Indication: ao pros BP: 120 / 70 HR: 74 Rhythm: Sinus Technical Quality: Adequate MEASUREMENTS (Male / Female) Normal Values 2D ECHO LV Diastolic Diameter PLAX 4.0 cm 4.2 - 5.9 / 3.9 - 5.3 cm IVS Diastolic Thickness 1.5 cm 0.6 - 1.0 / 0.6 - 0.9 cm IVS Systolic Thickness 1.8 cm LVPW Diastolic Thickness 1.6 cm 0.6 - 1.0 / 0.6 - 0.9 cm LVPW Systolic Thickness 1.7 cm LVOT Diameter 2.1 cm LV Ejection Fraction 2D Teich 63.0 % LV Ejection Fraction MOD 4C 65.3 % LV Ejection Fraction MOD 2C 49.8 % LV Ejection Fraction 2C AL 51.0 % LA Diameter 3.7 cm RA Systolic Volume 4C AL 30.9 ml RA Systolic Volume 4C MOD 28.9 ml Aorta at Sinotubular Diameter 3.1 cm M-MODE LA Ao Ratio MM 1.4 AV Cusp Separation MM 2.3 cm DOPPLER AV Peak Velocity 249.7 cm/s LVOT Peak Velocity 112.0 cm/s AV Area Cont Eq vti 1.7 cm squared AV Area Cont Eq pk 1.5 cm squared MV Area PHT 5.1 cm squared TV Peak Velocity 212.5 cm/s TR Peak Velocity 223.0 cm/s TR Peak Gradient 19.9 mmHg TV Peak E Velocity 109.0 cm/s PV Peak Velocity 124.0 cm/s FINDINGS Left Ventricle Normal left ventricular size and systolic function, EF 65%. Mild concentric left ventricular hypertrophy. No gross wall motion abnormalities noted.Grade I/IV diastolic dysfunction (abnormal relaxation filling pattern), normal to mildly elevated filling pressures. Right Ventricle The right ventricle is normal in size and function. Right Atrium The right atrium is normal in size. Left Atrium Normal left atrial size. Mitral Valve No gross abnormalities noted Aortic Valve Bioprosthetic valve at the aortic position appears to be well- seated. Peak velocity across the aortic valve was 2.5 m/s. Tricuspid Valve Trace tricuspid valve regurgitation. Estimated pulmonary artery peak systolic pressure within normal limit Pulmonic Valve Pulmonic valve not well visualized. Pericardium No pericardial effusion. Aorta Normal aortic annulus size. IVC Inferior vena cava not visualized. CONCLUSIONS Normal left ventricular size and systolic function, EF 65%. Mild concentric left ventricular hypertrophy. No gross wall motion abnormalities noted.Grade I/IV diastolic dysfunction (abnormal relaxation filling pattern), normal to mildly elevated filling pressures. Bioprosthetic valve at the aortic position appears to be well- seated. Peak velocity across the aortic valve was 2.5 m/s. Trace tricuspid valve regurgitation. Estimated pulmonary artery peak systolic pressure within normal limit. There is no pericardial effusion. There are no intracardiac masses. Compared to the study from 12/28/2022, there may not be a significant change Dr Cici Garcia MD FAC (Electronically Signed) Final Date: 05 June 2024 23:13 S
== END 2024-06-05 12:57 | disposition home or self-care (01) ==
PROVIDERS: PCP Registered Nurse; Visit Provider Internal Medicine Cardiovascular Disease
DX: R06.09 Other forms of dyspnea (principal); I51.7 Cardiomegaly; R93.1 Abnormal findings on diagnostic imaging of heart and coronary circulation; Z96.89 Presence of other specified functional implants
CPT/HCPCS: 93306

== ENCOUNTER 2024-08-10 16:07 | Emergency (ER) | payer MEDICARE, SELFPAY ==
[2024-08-10 16:10] VITALS: BP 139/70; PULSE 72; TEMP 36.4; O2SAT 92
--- OUTSIDE RECORDS SUMMARY | 2024-08-10 16:12 | XMS_ITS | Encounter Summary ---
Author Organization [employer] [facility] Address [address] [place] [address] Care Team Providers Care Paper Cutter Name Role Phone Unavailable Primary Care Provider Unavailabl e Encounter Details Date Type Department Care Team (Late st Contact Info) Description 11/14/2017 Ancillary Orders [employer] [facility] [place] [address] [place] [address] Yahaira Warner, SANJAY Schneider [address] [place] [address] Chronic pain of right knee Social History Tobacco Use Types Packs/Day Years Used Date Smoking Tobacco: Former Cigarettes Q uit: 1993 Alcohol Use Standard Drinks/Week Comments No 0 (1 standard drink = 0.6 oz pur e alcohol) Sex and Gender Information Value Date Recorded Sex Assigned at Not on file Legal Sex Male 11:34 AM CDT Gender Identity Not on file Sexual Orientation Not on file documented as of this encounter Plan of Treatment Not on file documented as of this encounter Results * XR KNEE 3 VW RIGHT (11/14/2017 9:18 AM CDT) Anatomical Region Laterality Modality Lower Extremity Computed Radiogr aphy 11/14/2017 9:18 AM CDT Impressions 11/14/2017 10:02 AM CDT IMPRESSION: Please see below. Exam: XR KNEE 3 VW RIGHT Date/Time of Exam: 11/14/2017 9:18 AM Reason For Exam: See Diagnosis. Diagnosis: Chronic pain of right knee; Chronic pain of right knee. Comparison: None. Findings: Three views of the knee demonstrate no acute fracture or dislocation. No significant effusion of the suprapatellar pouch is seen. Mild marginal osteophyte formation of the patellofemoral compartment is seen. An eccentric lobulated intramedullary sclerotic lesion of the posterior medial distal femoral metadiaphysis is identified. 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 Vascular calcification is present. Mild nonspecific anterior soft tissue swelling is present. Impression: 1. Negative for acute osseous abnormality. 2. Mild osteoarthritis of the patellofemoral compartment. Narrative Procedure Note Jf Zavala MD - 11/14/2017 IMPRESSION: Please see below. Exam: XR KNEE 3 VW RIGHT Date/Time of Exam: 11/14/2017 9:18 AM Reason For Exam: See Diagnosis. Diagnosis: Chronic pain of right knee; Chronic pain of right knee. Comparison: None. Findings: Three views of the knee demonstrate no acute fracture or dislocation. No significant effusion of the suprapatellar pouch is seen. Mild marginal osteophyte formation of the patellofemoral compartment is seen. An eccentric lobulated intramedullary sclerotic lesion of the posterior medial distal femoral metadiaphysis is identified. 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 Vascular calcification is present. Mild nonspecific anterior soft tissue swelling is present. Impression: 1. Negative for acute osseous abnormality. 2. Mild osteoarthritis of the patellofemoral compartment. Chad Syed Sr., BOARD CERTIFIED ORTHODONTIST DIAGNOSTIC IMAGIN G ORDERABLES Final Result documented in this encounter Visit Diagnoses Diagnosis Chronic pain of right knee Chronic pain of right knee documented in this encounter
--- OUTSIDE RECORDS SUMMARY | 2024-08-10 16:12 | XMS_ITS | Clinical Summary ---
Author Organization [employer] [facility] Address [address] [facility] Attn: [place] [address] Care Team Providers Care Farm Mortgage Agent Name Role Phone Unavailable Primary Care Provider Unavailabl e Allergies No known active allergies Medications meclizine (ANTIVERT) 25 mg tablet Take 1 Tablet (25 mg) by mouth 3 times daily as needed for Dizziness. 30 Tablet None 08/06/2016 Active acetaminophen (TYLENOL) 500 mg tablet Take 500 mg by mouth every 6 hours as needed. 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 Gender Identity Not on file Sexual Orientation Not on file Last Filed Vital Signs Vital Sign Reading Time Taken Comments Blood Pressure 188/86 08/06/2016 3:44 PM CDT Pulse - - Temperature 36.4 C (97.6 F) 08/06/2016 3:44 PM CDT Respiratory Rate 18 08/06/2016 3:44 PM CDT Oxygen Saturation - - Inhaled Oxygen Concentration - - Weight 91.2 kg (201 lb) 08/06/2016 12:32 PM CDT Height 167.6 cm (5' 6 ) 08/06/2016 12:32 PM CDT Body Mass Index 32.44 08/06/2016 12:32 PM CDT Plan of Treatment Health Maintenance Due Date Last Done Comments DTAP/TDAP/TD VACCINES (1 - Tdap) 01/01/1963 PNEUMOCOCCAL VACCINE 50+ YEARS (1 of 1 - PCV) 01/01/19 94 ZOSTER VACCINE (1 of 2) 01/01/1994 RSV VACCINE (60+ or ) (1 - 1-dose 75+ series) 01/01/2019 INFLUENZA VACCINE (#1) 2023
--- OUTSIDE RECORDS SUMMARY | 2024-08-10 16:12 | XMS_ITS | Clinical Summary ---
Author Organization [facility] Address [address] [address] Phone Care Team Providers Care Malt Loader Name Role Phone Unavailable Primary Care Provider Unavailabl e Allergies No known active allergies Medications acetaminophen (TYLENOL) 500 mg tablet Take 500 mg by mouth every 6 hours as needed. Active meclizine (ANTIVERT) 25 mg tablet Take 1 Tablet (25 mg) by mouth 3 times daily as needed for Dizziness. 30 Tablet None 08/06/2016 Active Social History Tobacco Use Types Packs/Day Years Used Date Smoking Tobacco: Former Cigarettes Q uit: 1993 Tobacco Cessation:Counseling Given: No Alcohol Use Standard Drinks/Week Comments No 0 [...] 18 08/06/2016 3:44 PM CDT Oxygen Saturation 97% 08/06/2016 3:44 PM CDT Inhaled Oxygen Concentration - - Weight 91.2 [...] 75+ series) 01/01/2019 INFLUENZA VACCINE (#1) 2023 Insurance MEDICARE PART A AND B
--- OUTSIDE RECORDS SUMMARY | 2024-08-10 16:12 | XMS_ITS | Encounter Summary ---
Author Organization [employer] Address [address] [place] [address] Care Team Providers Care Cost Recorder Name Role Phone Unavailable Primary Care Provider Unavailabl e Encounter Details Date Type Department Care Team (Late st Contact Info) Description 11/14/2017 [facility] [address] [place] [address] Yahaira Warner, SANJAY Schneider [address] [place] [address] Chronic pain of right knee Social History [...] on file documented as of this encounter Visit Diagnoses Diagnosis Chronic pain of right knee documented in this encounter
[2024-08-10 16:42] LABS: Basophils % 0.3 %; Eosinophils # 0.2 10^3/uL (0.0-0.8); Eosinophils % 2.5 %; Lymphocytes # 2.1 10^3/uL (0.8-4.8); Lymphocytes % 23.5 %; Mean Corpuscular HGB Conc 32.4 g/dL (30-55); Mean Corpuscular Hemoglobin 28.3 pg (27-33); Mean Corpuscular Volume 87.4 fl (82-101); Mean Platelet Volume 10.8 fL (7.4-10.4); Monocytes # 0.7 10^3/uL (0.2-0.9); Monocytes % 7.7 %; Neutrophils # 5.75 10^3/uL (1.8-7.7); Neutrophils % 65.8 %; Nucleated Red Blood Cells % 0 %; Platelet Count 153 10^3/cmm (157-399); Red Blood Count 4.35 10^6/uL (3.85-5.65); Red Cell Distribution Width 13.6 % (12.1-15.1); White Blood Count 8.75 10^3/uL (3.29-11.43)
--- NOTE | 2024-08-10 16:51 | W.ED.GIBLEED ---
HPI - GI Bleed General: Chief complaint: GI Bleed Stated complaint: rectal bleeding Time Seen by Provider: 08/10/24 16:25 History of Present Illness: Patient is 79-year-old gentleman never had a colonoscopy, status post TAVR 2020, CAD without recent intervention on Plavix, aspirin that presented to the ED with blood in stool. This is dark with red around it in the toilet. He is not lightheaded, dizzy, or having palpitations. No chest pain. He is passing gas. His stool is looser. Associated symptoms: Denies abdominal pain, chills, easy bruising, fever(s), headache(s), nausea, rash or vomiting Related Data Home Medications ?Medication ?Instructions ?Recorded ?Confirmed aspirin 81 mg tablet,delayed 81 mg PO QAM 02/21/19 07/21/24 release ascorbic acid (vitamin C) 1,000 mg 1,000 mg PO QAM 04/28/20 07/21/24 tablet (Vitamin C With Charlotte Hips) glucosamine sulf dipot 1 cap PO BID 04/28/20 07/21/24 chlr,msm,chond 550 mg-C 30 mg-sotero 1 mg capsule (Glucosamine Chondroitin) magnesium oxide 400 mg PO BEDTIME 04/28/20 07/21/24 ghphmxxnpugx-ifihqxuh-dyqnvd 1 tab PO QAM 04/28/20 07/21/24 tablet (Multivitamin 50 Plus tablet) acetaminophen 325 mg capsule 325 mg PO QID PRN 07/01/20 07/21/24 cholecalciferol (vitamin D3) 25 25 mcg PO DAILY 11/23/21 07/21/24 mcg (1,000 unit) capsule atorvastatin 40 mg tablet 40 mg PO DAILY 06/27/23 07/21/24 Previous Rx's ?Medication ?Instructions ?Recorded amitriptyline 10 mg tablet See Rx Instructions .Route 11/22/23 .COMPLEX 90 days #90 tabs amlodipine 10 mg tablet See Rx Instructions .Route 11/22/23 .COMPLEX #90 tabs losartan 100 mg tablet See Rx Instructions .Route 12/05/23 .COMPLEX #90 tabs carvedilol 3.125 mg tablet 3.125 mg PO BID #180 tabs 12/14/23 atorvastatin 40 mg tablet See Rx Instructions .Route 01/23/24 .COMPLEX #90 tabs clopidogrel 75 mg tablet 75 mg PO DAILY #90 tabs 02/12/24 pantoprazole 40 mg tablet,delayed See Rx Instructions .Route 06/03/24 release .COMPLEX #90 tabs levocetirizine 5 mg tablet See Rx Instructions .Route 06/13/24 .COMPLEX #90 tabs albuterol sulfate 90 mcg/actuation See Rx Instructions .Route 07/24/24 aerosol inhaler .COMPLEX #18 grams Allergies Allergy/AdvReac Type Severity Reaction Status Date / Time tramadol Allergy Unknown Verified 08/10/24 16:16 Review of Systems Const: Denies: fever(s) or chills Eyes: Denies: change in vision or blurry vision ENMT: Denies: throat pain or mouth pain Card: Denies: chest pain or palpitations Resp: Denies: dyspnea or productive cough GI: Reports: hematochezia; Denies: abdominal pain, nausea, vomiting, diarrhea, GI cramping, fecal incontinence, pain on defecation, rectal pain or rectal swelling : Denies: flank pain or difficulty urinating Musc: Denies: neck pain, extremity pain or joint pain Skin/Breast: Denies: rash, pruritus or skin tenderness Neuro: Denies: headache(s) or numbness in extremities Psych: Denies: anxiety or depression Endo: Denies: polydipsia Carl/Lymph: Denies: easy bruising or easy bleeding PFSH ED PFSH: Medical History Actinic keratosis Bilateral carotid bruits Splenic neoplasm CVA (cerebral vascular accident) CAD (coronary artery disease) Arthritis of right knee Shortness of breath Aortic stenosis, severe Lumbar degenerative disc disease Hyperlipidemia Arthritis of right hip Hypertension Osteoarthritis of right glenohumeral joint Surgical History Hx of heart artery stent Hx of appendectomy History of aortic valve replacement 11/08/2020 at [facility] Family History Mother Cancer Father Diabetes Denies family history of CAD (coronary artery disease) Clotting disorder Dementia Hyperlipidemia Psychiatric illness Chronic kidney disease (CKD) Suicide Anesthesia complication Bleeding disorder Family history of premature coronary artery disease Lung disease Hypertension Stroke Social History Smoking and tobacco/nicotine status: former use of tobacco/nicotine Alcohol intake: former Substance/Drug Use: never Adopted: No Caregiver/support person: No Lives independently: No Household members: spouse Marital status: service: No Current occupational status: retired Sexually active: Yes Do you think of yourself as: Straight/Heterosexual Current gender identity: Male and Female Physical Exam Const: COMMON NORMALS: no acute distress, average body habitus and patient oriented x3 GENERAL APPEARANCE: cooperative ORIENTATION/CONSCIOUSNESS: Yes awake Lymph: LYMPHATIC: no lymphadenopathy noted Resp: COMMON NORMALS: normal respiratory effort and clear to auscultation bilaterally AUSCULTATION: clear to auscultation bilaterally Cardio: COMMON NORMALS: regular rate and regular rhythm RATE: regular rate RHYTHM: regular rhythm GI: COMMON NORMALS: Normal to inspection, nondistended, normoactive bowel sounds present : COMMON NORMALS: Yes no CVA tenderness BLADDER/KIDNEY EXAM: Yes no CVA tenderness Back/Pelvis: COMMON NORMALS: no CVA tenderness Extremity: COMMON NORMALS: no pedal edema RIGHT LOWER EXTREMITY: Yes hip joint Right hip: Yes inspection (lateral swelling), Yes palpation (pain) and Yes ROM (unable due to pain) Neuro: COMMON NORMALS: patient oriented x3 Psych: COMMON NORMALS: mental status grossly normal and Normal thought process present THOUGHT PROCESS: Normal thought process present Course Vital Signs: Vital signs: Vital Signs Temperature 97.6 F 08/10/24 16:10 Pulse Rate 64 08/10/24 17:58 Blood Pressure 118/63 08/10/24 17:58 Pulse Oximetry 93 08/10/24 17:58 Oxygen Delivery Me thod Room Air 08/10/24 16:10 MDM - GI Bleed Medical Decision Making Patient is a 79-year-old gentleman without previous colonoscopy that reports to ED with bleeding. This occurred on 2 incidents, and the picture shows minimal blood in the toilet. Hemoglobin is 12.3, previously 13.6. He does not have lightheadedness, or dizziness. This is most likely consistent with diverticuli bleed which is now stopped. I did discuss my concern of repeat bleeding with and patient, and to return to the emergency room for further evaluation. He is to be on a clear or full liquid diet until he has subjective pain that was not present on exam resolves. Patient is also to hold his clopidogrel, aspirin, ibuprofen until follow-up with primary care. Discussed with patient laboratory data should be repeated. Continue drinking fluids. Consider colonoscopy, versus CT. Given his exam, no CT was needed at the emergency department. All of his questions answered to his satisfaction. Lab Data 08/10/24 16:34 08/10/24 16:34 Laboratory Results WBC 8.75 10^3/uL (3.29-11.43) 08/10/24 16:34 RBC 4.35 10^6/uL (3.85-5.65) 08/10/24 16:34 Hgb 12.30 g/dL (11.27-16.99) 08/10/24 16:34 Hct 38.0 % (37-53) 08/10/24 16:34 MCV 87.4 fl (82-101) 08/10/24 16:34 MCH 28.3 pg (27-33) 08/10/24 16:34 MCHC 32.4 g/dL (30-55) 08/10/24 16:34 RDW 13.6 % (12.1-15.1) 08/10/24 16:34 Plt Count 153 10^3/cmm (157-399) L 08/10/24 16:34 MPV 10.8 fL (7.4-10.4) H 08/10/24 16:34 Neut % (Auto) 65.8 % 08/10/24 16:34 Lymph % (Auto) 23.5 % 08/10/24 16:34 Routt % (Auto) 7.7 % 08/10/24 16:34 Eos % (Auto) 2.5 % 08/10/24 16:34 Baso % (Auto) 0.3 % 08/10/24 16:34 Neut # (Auto) 5.75 10^3/uL (1.8-7.7) 08/10/24 16:34 Lymph # (Auto) 2.1 10^3/uL (0.8-4.8) 08/10/24 16:34 Routt # (Auto) 0.7 10^3/uL (0.2-0.9) 08/10/24 16:34 Eos # (Auto) 0.2 10^3/uL (0.0-0.8) 08/10/24 16:34 Baso # (Auto) 0.0 10^3/uL (0.0-0.1) 08/10/24 16:34 Nucleated RBC % (auto) 0 % 08/10/24 16:34 Nucleated RBCs # 0.0 /100WBC 08/10/24 16:34 PT 13.60 SECONDS (12.1-14.9) 08/10/24 16:34 INR 0.97 (0.8-1.2) 08/10/24 16:34 Sodium 138 mmol/L (136-145) 08/10/24 16:34 Potassium 4.2 mmol/L (3.5-5.1) 08/10/24 16:34 Chloride 101 mmol/L (98-107) 08/10/24 16:34 Carbon Dioxide 27 mmol/L (22-29) 08/10/24 16:34 Anion Gap 14.2 (5-19) 08/10/24 16:34 BUN 21 mg/dL (8-23) 08/10/24 16:34 Creatinine 1.1 mg/dL (0.7-1.2) 08/10/24 16:34 GFR Calculation Not Reportable 08/10/24 16:34 Glucose 117 mg/dL (65-115) H 08/10/24 16:34 Calculated Osmolality 290 mOsm/kg (285-295) 08/10/24 16:34 Calcium 8.7 mg/dL (8.5-10.5) 08/10/24 16:34 Total Bilirubin 0.6 mg/dL (0.15-1.2) 08/10/24 16:34 AST 21 U/L (0-40) 08/10/24 16:34 ALT 23 U/L (0-41) 08/10/24 16:34 Alkaline Phosphatase 92 U/L (40-130) 08/10/24 16:34 Total Protein 6.5 g/dL (6.6-8.7) L 08/10/24 16:34 Albumin 3.8 g/dL (3.5-5.2) 08/10/24 16:34 Globulin 2.7 g/dL (1.3-4.6) 08/10/24 16:34 No radiology studies performed this visit Discharge Plan Discharge Patient Disposition: Home Clinical Impression: Lower gastrointestinal hemorrhage Condition: Stable Prescriptions: No Action aspirin 81 mg tablet,delayed release (DR/EC) 81 mg PO QAM acetaminophen 325 mg capsule 325 mg PO QID PRN atorvastatin 40 mg tablet 40 mg PO DAILY cholecalciferol (vitamin D3) 25 mcg (1,000 unit) capsule 25 mcg PO DAILY amitriptyline 10 mg tablet See Rx Instructions .ROUTE .COMPLEX 90 Days Qty: 90 5RF Dose Instruction: Take 1 tablet by mouth once daily Rx Instructions: Take 1 tablet by mouth once daily amlodipine 10 mg tablet See Rx Instructions .ROUTE .COMPLEX Qty: 90 1RF Dose Instruction: Take 1 tablet by mouth once daily Rx Instructions: Take 1 tablet by mouth once daily losartan 100 mg tablet See Rx Instructions .ROUTE .COMPLEX Qty: 90 3RF Dose Instruction: Take 1 tablet by mouth once daily Rx Instructions: Take 1 tablet by mouth once daily carvedilol 3.125 mg tablet 3.125 mg PO BID Qty: 180 3RF Rx Instructions: must administer with a meal/food atorvastatin 40 mg tablet See Rx Instructions .ROUTE .COMPLEX Qty: 90 3RF Dose Instruction: Take 1 tablet by mouth once daily Rx Instructions: Take 1 tablet by mouth once daily clopidogrel 75 mg tablet 75 mg PO DAILY Qty: 90 3RF pantoprazole 40 mg tablet,delayed release (DR/EC) See Rx Instructions .ROUTE .COMPLEX Qty: 90 3RF Dose Instruction: TAKE 1 TABLET BY MOUTH ONCE DAILY. MAKE FOLLOW UP FOR FURTHER REFILLS. Rx Instructions: TAKE 1 TABLET BY MOUTH ONCE DAILY. MAKE FOLLOW UP FOR FURTHER REFILLS. levocetirizine 5 mg tablet See Rx Instructions .ROUTE .COMPLEX Qty: 90 0RF Dose Instruction: TAKE 1 TABLET BY MOUTH ONCE DAILY AT BEDTIME FOR 90 DAYS Rx Instructions: TAKE 1 TABLET BY MOUTH ONCE DAILY AT BEDTIME FOR 90 DAYS albuterol sulfate 90 mcg/actuation HFA aerosol inhaler See Rx Instructions .ROUTE .COMPLEX Qty: 18 0RF Dose Instruction: INHALE 1 PUFF BY MOUTH 4 TIMES DAILY NEEDED FOR SHORTNESS OF BREATH FOR WHEEZING Rx Instructions: INHALE 1 PUFF BY MOUTH 4 TIMES DAILY NEEDED FOR SHORTNESS OF BREATH FOR WHEEZING ascorbic acid (vitamin C) [Vitamin C With Charlotte Hips] 1,000 mg Tablet 1,000 mg PO QAM Multivitamin 50 Plus Tablet 1 tab PO QAM magnesium oxide 400 mg magnesium Tablet 400 mg PO BEDTIME Glucosamine Chondroitin 550-30-1 mg Capsule 1 cap PO BID Discharge Orders: Discharge ED (Routine); Ordered 08/10/24 Ordered By: Alla Alva Referrals: Micah Beaulieu FNP [Primary Care Provider, Family Practice] Discharge Diet: Clear Liquid and Full LIquid Patient Instructions: Full Liquid Diet, Rectal Bleeding (ED), Clear Liquid Diet (ED), Patient Portal & Mariana Instructions Activity Restrictions/Additional Instructions: As we discussed, return to ED for worsening bleeding or ongoing bleeding. You will need to follow-up regarding your labs, and any additional testing with your primary care physician. Call your PCP tomorrow for an appointment this week. Continue your pantoprazole as we discussed. Hold your ibuprofen, clopidogrel, and aspirin as we discussed. This will be held until you follow-up with your primary care physician. Do not take other NSAIDs such as naproxen until you follow-up. Print Language: Faroese Coding Level of Care Code ED Marketing Admin for Jose David Garibay
[2024-08-10 16:52] LABS: INR 0.97 (0.8-1.2)
[2024-08-10 16:58] LABS: Alanine Aminotransferase 23 U/L (0-41); Albumin Level 3.8 g/dL (3.5-5.2); Alkaline Phosphatase 92 U/L (40-130); Anion Gap 14.2 (5-19); Aspartate Amino Transferase 21 U/L (0-40); Blood Urea Nitrogen 21 mg/dL (8-23); Calcium 8.7 mg/dL (8.5-10.5); Carbon Dioxide 27 mmol/L (22-29); Chloride 101 mmol/L (98-107); Globulin 2.7 g/dL (1.3-4.6); Glucose 117 mg/dL (65-115); Osmolality Calculated 290 mOsm/kg (285-295); Potassium 4.2 mmol/L (3.5-5.1); Sodium 138 mmol/L (136-145); Total Bilirubin 0.6 mg/dL (0.15-1.2); Total Protein 6.5 g/dL (6.6-8.7)
[2024-08-10] MEDS: pantoprazole DR 40 mg Tablet PO (17:24)
[2024-08-10 17:58] VITALS: BP 118/63; PULSE 64; O2SAT 93
== END 2024-08-10 17:59 | disposition home or self-care (01) ==
PROVIDERS: Emergency Medicine; Emergency Provider Physician Assistant; PCP Registered Nurse
DX: K92.2 Gastrointestinal hemorrhage, unspecified (principal); Z79.82 Long term (current) use of aspirin; Z79.02 Long term (current) use of antithrombotics/antiplatelets; Z87.891 Personal history of nicotine dependence; I25.10 Atherosclerotic heart disease of native coronary artery without angina pectoris; Z86.73 Personal history of transient ischemic attack (TIA), and cerebral infarction without residual deficits; E78.5 Hyperlipidemia, unspecified; I10 Essential (primary) hypertension
CPT/HCPCS: 80053; 85025; 85610; 99283; J9999

== ENCOUNTER 2024-09-25 12:55 | Outpatient (CLI) | payer MEDICARE, SELFPAY | END 2024-09-25 12:56 | disposition home or self-care (01) | LOC: SLEEP 12:57 | PROVIDERS: PCP Registered Nurse; Referring Provider Registered Nurse; Visit Provider Internal Medicine Pulmonary Disease | DX: G47.33 Obstructive sleep apnea (adult) (pediatric) (principal) | CPT/HCPCS: G0399 ==

== ENCOUNTER → 2024-12-10 09:56 | Outpatient (BNVA) | payer MEDICARE, SELFPAY | PROVIDERS: PCP Registered Nurse; Visit Provider Specialist | DX: M19.011 Primary osteoarthritis, right shoulder (principal); M19.012 Primary osteoarthritis, left shoulder | CPT/HCPCS: 20610; 73030; 99204; J1100; J2795; J3301; J9999 ==

== ENCOUNTER → 2024-12-31 09:57 | Outpatient (BNVA) | payer MEDICARE, SELFPAY | PROVIDERS: PCP Registered Nurse; Visit Provider Internal Medicine Cardiovascular Disease | DX: I25.10 Atherosclerotic heart disease of native coronary artery without angina pectoris (principal); I10 Essential (primary) hypertension; E78.5 Hyperlipidemia, unspecified; G47.33 Obstructive sleep apnea (adult) (pediatric); Z99.89 Dependence on other enabling machines and devices; Z95.5 Presence of coronary angioplasty implant and graft; Z95.2 Presence of prosthetic heart valve; Z86.73 Personal history of transient ischemic attack (TIA), and cerebral infarction without residual deficits; Z79.82 Long term (current) use of aspirin; Z87.891 Personal history of nicotine dependence | CPT/HCPCS: 99214 ==